=== PATIENT | female | born 1995 | race Caucasian/White ===

== ENCOUNTER → 2016-07-08 | Outpatient (CLI) | payer OTHER ==
[~2016-07-08] MED LIST: ACET50TA PO; IBUP-1114 PO; PREN27TA3 PO; PRENTAB9 PO
[2016-07-08 17:11] LABS: MEAN CORPUSCULAR HEMOGLOBIN 31.3 pg (27.0-33.0); MEAN CORPUSCULAR HGB CONC 33.3 g/dl (32.0-36.5); MEAN CORPUSCULAR VOLUME 93.9 fl (80.0-96.0); RED CELL DISTRIBUTION WIDTH 13.8 % (11.5-14.5); WHITE BLOOD COUNT 7.2 K/mm3 (4.0-10.0)
[2016-07-08 17:54] LABS: ALBUMIN 3.4 GM/DL (3.2-5.2); ALBUMIN/GLOBULIN RATIO 0.97 (1.00-1.93); ALKALINE PHOSPHATASE 91 U/L (45-117); ALT/SGPT 21 U/L (12-78); ANION GAP 5 MEQ/L (8-16); AST/SGOT 16 U/L (15-37); BILIRUBIN,TOTAL 0.2 MG/DL (0.2-1.0); BLOOD UREA NITROGEN 19 MG/DL (7-18); CALCIUM LEVEL 8.9 MG/DL (8.5-10.1); CARBON DIOXIDE LEVEL 31 MEQ/L (21-32); CHLORIDE LEVEL 104 MEQ/L (98-107); CREATININE FOR GFR 0.83 MG/DL (0.55-1.02); GLUCOSE, FASTING 86 MG/DL (70-105); POTASSIUM SERUM 4.1 MEQ/L (3.5-5.1); SODIUM LEVEL 140 MEQ/L (136-145); TOTAL PROTEIN 6.9 GM/DL (6.4-8.2)
--- NOTE | 2016-07-12 07:39 | REP ---
KUB Abdomen and Pelvis: KUB film of abdomen and pelvis is performed with three total views obtained. There is no bowel obstruction with normal bowel gas pattern. No dilated small bowel loops are seen. No abnormal calcifications are seen. The visualized osseous structures are unremarkable. IMPRESSION: Unremarkable KUB abdomen. Unreviewed
== END ==
LOC: M LAB 16:21
PROVIDERS: ATTEND Internal Medicine Gastroenterology
DX: K50.00 Crohn's disease of small intestine without complications (principal); R19.7 Diarrhea, unspecified

== ENCOUNTER → 2016-07-15 | Outpatient (REF) | payer OTHER | LOC: M LAB REF 14:40 | PROVIDERS: ATTEND Internal Medicine Gastroenterology | DX: K50.00 Crohn's disease of small intestine without complications (principal); R19.7 Diarrhea, unspecified ==

== ENCOUNTER → 2016-09-27 | Outpatient (CLI) | payer OTHER ==
[2016-09-27 18:01] LABS: BASO % 0.6 % (0.0-1.0); EOS # 0.1 K/mm3 (0.0-0.50); EOS % 2.2 % (0.0-3.0); LARGE UNSTAINED CELL # 0.1 K/mm3 (0.0-0.4); LYMPH # 1.8 K/mm3 (1.5-6.5); LYMPH % 32.4 % (24.0-44.0); MEAN CORPUSCULAR VOLUME 93.9 fl (80.0-96.0); MONO # 0.4 K/mm3 (0.0-0.8); MONO % 6.7 % (0.0-5.0); NEUTROPHILS # 3.1 K/mm3 (1.8-7.7); NEUTROPHILS % 56.2 % (36.0-66.0); PLATELET COUNT, AUTOMATED 227 k/mm3 (150-450); RED CELL DISTRIBUTION WIDTH 12.8 % (11.5-14.5); WHITE BLOOD COUNT 5.4 K/mm3 (4.0-10.0)
[2016-09-27 18:36] LABS: CONTROL LINE HCG INT CTR LINE PRESENT
[2016-09-27 18:52] LABS: T UPTAKE 32 % (30-39); THYROXINE (T4) 11.6 UG/DL (6.0-11.6)
== END ==
LOC: M SMT 13:32
PROVIDERS: ATTEND Advanced Practice Midwife
DX: N92.6 Irregular menstruation, unspecified (principal); R10.30 Lower abdominal pain, unspecified

== ENCOUNTER → 2016-09-30 | Outpatient (CLI) | payer OTHER ==
--- NOTE | 2016-09-30 17:54 | REP ---
REASON: Pelvic pain. COMPARISON: None. Transvesical and transvaginal imaging was obtained. The uterus measures 6.4 x 4.3 x 5 cm. The parenchymal echo pattern is within normal limits. The endometrial echo complex is smooth and unremarkable measuring 4 mm in thickness. Right ovary measures 3.2 x 2.2 x 2.5 cm and is within normal limits with an RI of 0.73. Left ovary measures 3.4 x 2.2 x 1.7 cm and is within normal limits with an RI of 0.47. There is no free fluid in the cul-de-sac. IMPRESSION: Normal exam. Signed by Justin Rosenberg DO 10/05/2016 04:25 P
== END ==
LOC: M RAD 16:26
PROVIDERS: ATTEND Advanced Practice Midwife
DX: R10.30 Lower abdominal pain, unspecified (principal)

== ENCOUNTER → 2017-01-12 | Outpatient (CLI) | payer MEDICAID ==
[2017-01-12 12:58] LABS: BASO % 0.5 % (0.0-1.0); EOS # 0.1 10^3/uL (0.0-0.50); EOS % 1.8 % (0.0-3.0); IMMATURE GRANULOCYTE % 0.2 % (0-0); LYMPH # 1.2 10^3/uL (1.5-6.5); LYMPH % 18.4 % (24.0-44.0); MEAN CORPUSCULAR HEMOGLOBIN 30.9 pg (27.0-33.0); MEAN CORPUSCULAR HGB CONC 33.3 g/dl (32.0-36.5); MONO # 0.5 10^3/uL (0.0-0.8); MONO % 8.1 % (0.0-5.0); NEUTROPHILS # 4.7 10^3/uL (1.8-7.7); PLATELET COUNT, AUTOMATED 185 10^3/uL (150-450); RED CELL DISTRIBUTION WIDTH 12.6 % (11.5-14.5); WHITE BLOOD COUNT 6.6 10^3/uL (4.0-10.0)
[2017-01-13 11:02] LABS: HBsAg Prenatal NEGATIVE (NEGATIVE)
== END ==
LOC: M SMT 08:32
PROVIDERS: ATTEND Advanced Practice Midwife
DX: Z3A.08 8 weeks gestation of pregnancy (principal)

== ENCOUNTER 2017-02-13 17:13 | Emergency (ER) | payer MEDICAID, OTHER ==
[~2017-02-13] VITALS: Ht 165.1 cm; Wt 68.2 kg
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
[2017-02-13 19:42] VITALS: BP 122/69
== END 2017-02-13 19:32 | disposition home or self-care (01) ==
LOC: M ED 19:29
DX: Z71.1 Person with feared health complaint in whom no diagnosis is made (principal); Z3A.12 12 weeks gestation of pregnancy

== ENCOUNTER → 2017-03-08 | Outpatient (REF) | payer OTHER | LOC: M LAB REF 03-09 13:55 | DX: Z34.81 Encounter for supervision of other normal pregnancy, first trimester (principal) ==

== ENCOUNTER → 2017-03-28 | Outpatient (CLI) | payer OTHER | LOC: M RAD 07:53 | DX: Z36.89 Encounter for other specified antenatal screening (principal); Z3A.18 18 weeks gestation of pregnancy | CPT/HCPCS: 76811 ==

== ENCOUNTER → 2017-04-03 | Outpatient (REF) | payer OTHER | LOC: M LAB REF 15:00 | DX: R35.0 Frequency of micturition (principal) | CPT/HCPCS: 87086 ==

== ENCOUNTER → 2017-04-05 | Outpatient (REF) | payer OTHER | LOC: M LAB REF 12:57 | DX: Z34.82 Encounter for supervision of other normal pregnancy, second trimester (principal) ==

== ENCOUNTER → 2017-07-26 | Outpatient (REF) | payer OTHER | LOC: M LAB REF 10:47 | DX: Z34.83 Encounter for supervision of other normal pregnancy, third trimester (principal); Z3A.00 Weeks of gestation of pregnancy not specified ==

== ENCOUNTER 2017-08-12 19:20 | Outpatient (CLI) | payer OTHER ==
[2017-08-12] MEDS: TERCONAZOLE-7 VAGINAL CREAM PV (21:00)
== END 2017-08-12 23:05 | disposition home or self-care (01) ==
LOC: M LDO 19:20
DX: O26.893 Other specified pregnancy related conditions, third trimester (principal); N89.8 Other specified noninflammatory disorders of vagina; O47.1 False labor at or after 37 completed weeks of gestation; Z3A.38 38 weeks gestation of pregnancy
CPT/HCPCS: 59025

== ENCOUNTER 2017-08-23 07:55 | Inpatient (IN) | payer OTHER ==
[2017-08-23] MEDS: PENICILLIN G POTASSIUM IV 5 MU in D5W MINI-BAG PLUS 100 ML IV (09:08)
[2017-08-23] MEDS: LR 1,000 ML IV (09:09)
[2017-08-23 09:26] LABS: HEMATOCRIT 34.7 % (36.0-47.0); HEMOGLOBIN 11.2 g/dl (12.0-15.5); MEAN CORPUSCULAR HEMOGLOBIN 26.9 pg (27.0-33.0); MEAN CORPUSCULAR HGB CONC 32.3 g/dl (32.0-36.5); MEAN CORPUSCULAR VOLUME 83.4 fl (80.0-96.0); PLATELET COUNT, AUTOMATED 168 10^3/uL (150-450); RED BLOOD COUNT 4.16 10^6/uL (4.00-5.40); RED CELL DISTRIBUTION WIDTH 15.2 % (11.5-14.5); WHITE BLOOD COUNT 9.2 10^3/uL (4.0-10.0)
[2017-08-23] MEDS: PENICILLIN G POTASSIUM IV 2.5 MU in APPROPRIATE DILUENT 1 EA IV (13:16)
[2017-08-23] MEDS ORDERED: OXYTOCIN 30 UNITS IN 0.9% NaCl 500ML IV BAG (J2590) As Ordered (14:01)
[2017-08-23] MEDS ORDERED: METHYLERGONOVINE MALEATE 0.2 MG/ML VIAL (J2210) As Ordered (14:07)
[2017-08-23] MEDS ORDERED: RHOGAM 300 MCG (1500 IU) INJ (J2790) IM (14:30)
[2017-08-23] MEDS ORDERED: DIBUCAINE 1% OINTMENT 30GM TOP (14:30)
[2017-08-23] MEDS ORDERED: METHYLERGONOVINE MALEATE 0.2 MG TAB PO (14:30)
[2017-08-23] MEDS ORDERED: IBUPROFEN 800 MG TAB PO (14:30)
[2017-08-23] MEDS ORDERED: ACETAMINOPHEN 500 MG TAB PO (14:30)
[2017-08-23] MEDS ORDERED: MEASLES,MUMPS,RUBELLA VACCINE INJ (MMR-II) (90707) SC (14:30)
[2017-08-23] MEDS ORDERED: DOCUSATE SODIUM 100 MG CAP PO (14:30)
[2017-08-23] MEDS: PRENATAL VITAMINS CHEWABLE TABLET PO (15:30)
[2017-08-23] MEDS: LIDOCAINE 1% MDV 20ML VIAL INFIL (19:00)
[2017-08-23] MEDS: OXYTOCIN INJ 10 UNITS/ML VIAL (J2590) IM (19:00)
[2017-08-23] MEDS: METHYLERGONOVINE MALEATE 0.2 MG/ML VIAL (J2210) IM (19:00)
[2017-08-23] MEDS: OXYTOCIN DRIP 30 UNITS in APPROPRIATE DILUENT 1 EA IV (19:00)
[2017-08-24] MEDS: PRENATAL VITAMINS CHEWABLE TABLET PO (08:20)
[2017-08-25] MEDS: PRENATAL VITAMINS CHEWABLE TABLET PO (09:38)
== END 2017-08-25 12:30 | disposition home or self-care (01) | DRG 560 ==
LOC: M LDO 07:55 → M LDI 08:19 → M OBS 15:23
PROVIDERS: Advanced Practice Midwife
PROC: 10E0XZZ Delivery of Products of Conception, External Approach (ICD-10-PCS; principal; 2017-08-23)
PROC: 10907ZC Drainage of Amniotic Fluid, Therapeutic from Products of Conception, Via Natural or Artificial Opening (ICD-10-PCS; 2017-08-23)
PROC: 0HQ9XZZ Repair Perineum Skin, External Approach (ICD-10-PCS; 2017-08-23)
DX: O99.62 Diseases of the digestive system complicating childbirth (principal); K90.0 Celiac disease; Z37.0 Single live birth; Z3A.39 39 weeks gestation of pregnancy; O99.824 Streptococcus B carrier state complicating childbirth; O70.0 First degree perineal laceration during delivery

== ENCOUNTER → 2017-10-18 | Outpatient (CLI) | payer OTHER ==
[2017-10-18 14:12] LABS: TOTAL 25(OH) VITAMIN D 16.3 NG/ML (30.0-100.0)
[2017-10-18 14:28] LABS: FREE T4 0.88 NG/DL (0.76-1.46); THYROID STIMULATING HORMONE 0.968 uIU/ML (0.358-3.740)
== END ==
LOC: M SMT 11:22
DX: O90.6 Postpartum mood disturbance (principal)
CPT/HCPCS: 84443

== ENCOUNTER 2017-12-09 15:31 | Emergency (ER) | payer OTHER ==
[2017-12-09] MEDS: ADACEL/BOOSTRIX VACCINE (DIPHTH/PERTUSS/ACELL/TETANUS)0.5ML SYR (90715) IM (15:53)
== END 2017-12-09 17:32 | disposition home or self-care (01) ==
LOC: M ED 15:31
DX: S59.902A Unspecified injury of left elbow, initial encounter (principal); S01.511A Laceration without foreign body of lip, initial encounter; W18.09XA Striking against other object with subsequent fall, initial encounter; Y92.014 Private driveway to single-family (private) house as the place of occurrence of the external cause
CPT/HCPCS: 90715

== ENCOUNTER → 2018-01-11 | Outpatient (REF) | payer OTHER | LOC: M LAB REF 16:58 | DX: Z12.4 Encounter for screening for malignant neoplasm of cervix (principal) ==

== ENCOUNTER → 2018-06-27 | Outpatient (CLI) | payer OTHER ==
[~2018-06-27] MED LIST changes: -ACET50TA PO; +MAPA500T2 PO; +ZOLO25TA PO
[2018-06-27 18:54] LABS: HEMATOCRIT 40.9 % (36.0-47.0); HEMOGLOBIN 13.3 g/dl (12.0-15.5); MEAN CORPUSCULAR HGB CONC 32.5 g/dl (32.0-36.5); MEAN CORPUSCULAR VOLUME 95.3 fl (80.0-96.0); PLATELET COUNT, AUTOMATED 198 10^3/uL (150-450); RED BLOOD COUNT 4.29 10^6/uL (4.00-5.40); WHITE BLOOD COUNT 6.3 10^3/uL (4.0-10.0)
[2018-06-27 19:29] LABS: ALBUMIN 3.9 GM/DL (3.2-5.2); ALT/SGPT 18 U/L (12-78); BILIRUBIN,TOTAL 0.3 MG/DL (0.2-1.0); BLOOD UREA NITROGEN 13 MG/DL (7-18); CARBON DIOXIDE LEVEL 29 MEQ/L (21-32); CHLORIDE LEVEL 108 MEQ/L (98-107); CREATININE FOR GFR 0.66 MG/DL (0.55-1.30); GLOMERULAR FILTRATION RATE > 60.0 (>60); GLUCOSE, FASTING 88 MG/DL (70-100); POTASSIUM SERUM 4.4 MEQ/L (3.5-5.1); SODIUM LEVEL 142 MEQ/L (136-145); TOTAL PROTEIN 7.1 GM/DL (6.4-8.2)
== END ==
LOC: M LAB 16:59
PROVIDERS: ATTEND Nurse Practitioner Adult Health
DX: K50.00 Crohn's disease of small intestine without complications (principal)

== ENCOUNTER → 2019-01-14 | Outpatient (CLI) | payer OTHER ==
[2019-01-14 15:03] LABS: HEMATOCRIT 40.3 % (36.0-47.0); HEMOGLOBIN 13.3 g/dl (12.0-15.5); MEAN CORPUSCULAR HEMOGLOBIN 31.7 pg (27.0-33.0); MEAN CORPUSCULAR VOLUME 96.2 fl (80.0-96.0); PLATELET COUNT, AUTOMATED 202 10^3/uL (150-450); RED BLOOD COUNT 4.19 10^6/uL (4.00-5.40); WHITE BLOOD COUNT 9.9 10^3/uL (4.0-10.0)
[2019-01-14 15:44] LABS: ALBUMIN 3.7 GM/DL (3.2-5.2); ALT/SGPT 25 U/L (12-78); BILIRUBIN,TOTAL 0.4 MG/DL (0.2-1.0); BLOOD UREA NITROGEN 11 MG/DL (7-18); CALCIUM LEVEL 8.9 MG/DL (8.5-10.1); CARBON DIOXIDE LEVEL 31 MEQ/L (21-32); CHLORIDE LEVEL 104 MEQ/L (98-107); GLOMERULAR FILTRATION RATE > 60.0 (>60); GLUCOSE, FASTING 94 MG/DL (70-100); POTASSIUM SERUM 4.2 MEQ/L (3.5-5.1); SODIUM LEVEL 141 MEQ/L (136-145); TOTAL 25(OH) VITAMIN D 18.6 NG/ML (30.0-100.0); TOTAL PROTEIN 6.7 GM/DL (6.4-8.2)
== END ==
LOC: M LAB 14:24
PROVIDERS: ATTEND Nurse Practitioner Adult Health
DX: E55.9 Vitamin D deficiency, unspecified (principal)

== ENCOUNTER → 2019-01-15 | Outpatient (REF) | payer OTHER | LOC: M LAB REF 16:22 | PROVIDERS: ATTEND Internal Medicine Gastroenterology | DX: K50.00 Crohn's disease of small intestine without complications (principal) ==

== ENCOUNTER → 2019-03-08 | Outpatient (REF) | payer OTHER | LOC: M SFHCWAGY 17:38 | PROVIDERS: ATTEND Advanced Practice Midwife | DX: Z12.4 Encounter for screening for malignant neoplasm of cervix (principal) ==

== ENCOUNTER → 2019-05-01 | Outpatient (REF) | payer OTHER ==
[2019-05-01 17:21] LABS: HCG, SERUM QUALITATIVE NEGATIVE (NEGATIVE)
== END ==
LOC: M SFHCPLAZ 12:23
PROVIDERS: ATTEND Nurse Practitioner Adult Health
DX: R11.0 Nausea (principal)

== ENCOUNTER → 2019-07-05 | Outpatient (REF) | payer OTHER | LOC: M LAB REF 16:06 | DX: K50.00 Crohn's disease of small intestine without complications (principal) ==

== ENCOUNTER → 2019-07-15 | Outpatient (CLI) | payer OTHER ==
--- NOTE | 2019-07-16 03:20 | REP ---
Clinical: Completion with IUD. Technique: Transabdominal pelvic ultrasound followed by transvaginal examination for better evaluation of the endometrium and adnexa with color Doppler evaluation of the ovaries. Findings: Bladder is unremarkable and measures 8.4 x 6.6 x 3.9 cm. Normal anteverted uterus measures 6.9 x 4.8 x 4.9 cm . The endometrial complex measures 5.0 mm thickness. No discrete uterine or endometrial abnormalities are appreciated. IUD identified in central satisfactory position. Right ovary is not visualized. Left ovary appears normal and measures 2.4 x 1.7 x 1.5 cm (RI 0.54). Impression: 1. Normal anteverted uterus with IUD in satisfactory position. 2. Normal right ovary. Left ovary not visualized.
== END ==
LOC: M WHC 14:54
PROVIDERS: ATTEND Advanced Practice Midwife
DX: N85.4 Malposition of uterus (principal); T83.9XXA Unspecified complication of genitourinary prosthetic device, implant and graft, initial encounter

== ENCOUNTER → 2019-07-30 | Outpatient (REF) | payer OTHER ==
[2019-07-30 12:23] LABS: HCG, SERUM QUALITATIVE NEGATIVE (NEGATIVE)
== END ==
LOC: M PLALAB 09:59
PROVIDERS: ATTEND Nurse Practitioner Adult Health
DX: Z32.01 Encounter for pregnancy test, result positive (principal)

== ENCOUNTER 2019-08-06 18:45 | Emergency (ER) | payer OTHER ==
[~2019-08-06] VITALS: Ht 165.1 cm; Wt 70.9 kg
[2019-08-06] MEDS ORDERED: MIRE1IUD IU (18:49)
[2019-08-06 19:50] LABS: BASO % 0.6 % (0.0-1.0); EOS # 0.1 10^3/uL (0.0-0.5); EOS % 1.8 % (0.0-3.0); HEMATOCRIT 42.2 % (36.0-47.0); HEMOGLOBIN 14.2 g/dl (12.0-15.5); LYMPH # 1.7 10^3/uL (1.5-5.0); MEAN CORPUSCULAR HEMOGLOBIN 31.6 pg (27.0-33.0); MEAN CORPUSCULAR HGB CONC 33.6 g/dl (32.0-36.5); MEAN CORPUSCULAR VOLUME 93.8 fl (80.0-96.0); MONO # 0.6 10^3/uL (0.0-0.8); MONO % 10.3 % (0.0-5.0); NEUTROPHILS # 3.1 10^3/uL (1.5-8.5); NEUTROPHILS % 55.9 % (36.0-66.0); PLATELET COUNT, AUTOMATED 178 10^3/uL (150-450); WHITE BLOOD COUNT 5.5 10^3/uL (4.0-10.0)
[2019-08-06 20:16] LABS: HCG, SERUM QUALITATIVE NEGATIVE (NEGATIVE)
[2019-08-06 20:28] LABS: BLOOD UREA NITROGEN 7 MG/DL (7-18); CARBON DIOXIDE LEVEL 28 MEQ/L (21-32); CHLORIDE LEVEL 107 MEQ/L (98-107); CREATININE FOR GFR 0.71 MG/DL (0.55-1.30); GLOMERULAR FILTRATION RATE > 60.0 (>60); GLUCOSE, FASTING 87 MG/DL (70-100); POTASSIUM SERUM 3.9 MEQ/L (3.5-5.1); SODIUM LEVEL 142 MEQ/L (136-145)
[2019-08-06 20:29] LABS: ALBUMIN 3.7 GM/DL (3.2-5.2); ALT/SGPT 22 U/L (12-78); BILIRUBIN,DIRECT < 0.1 MG/DL (0.0-0.2); BILIRUBIN,TOTAL 0.3 MG/DL (0.2-1.0); CALCIUM LEVEL 8.5 MG/DL (8.5-10.1); LIPASE 91 U/L (73-393); TOTAL PROTEIN 6.7 GM/DL (6.4-8.2)
[2019-08-06] MEDS ORDERED: ISOVUE-370 76% 100ML VIAL As Ordered ONE (21:10)
--- NOTE | 2019-08-06 21:43 | REPVR ---
PROCEDURE INFORMATION: Exam: CT Abdomen And Pelvis With Contrast Exam date and time: 08/06/2019 9:17 PM Age: 24 years old Clinical indication: Abdominal pain; Localized; Lower; Additional info: Lower abd pain HX of crohn's TECHNIQUE: Imaging protocol: Computed tomography of the abdomen and pelvis with intravenous contrast. Radiation optimization: All CT scans at this facility use at least one of these dose optimization techniques: automated exposure control; mA and/or kV adjustment per patient size (includes targeted exams where dose is matched to clinical indication); or iterative reconstruction. Contrast material: ISOVUE 370; Contrast volume: 100 ml; Contrast route: IV; COMPARISON: PELVIS NON-OB COMPLETE US 07/15/2019 3:10 PM FINDINGS: Liver: Normal. No mass. Gallbladder and bile ducts: Normal. No calcified stones. No ductal dilation. Pancreas: Normal. No ductal dilation. Spleen: Normal. No splenomegaly. Adrenals: Normal. No mass. Kidneys and ureters: There are a few tiny bilateral renal hypodensities which are too small to characterize. Stomach and bowel: Unremarkable. No obstruction. No mucosal thickening. Appendix: No evidence of appendicitis. Intraperitoneal space: Trace free fluid within the pelvis. Vasculature: Unremarkable. No abdominal aortic aneurysm. Lymph nodes: Unremarkable. No enlarged lymph nodes. Bladder: Unremarkable as visualized. Reproductive: IUD within the uterus. 1 cm corpus luteal cyst involving the right ovary. Bones/joints: Unremarkable. No acute fracture. Soft tissues: Unremarkable. IMPRESSION: 1. No acute abnormality. 2. 1 cm corpus luteal cyst involving the right ovary. COMMENTS: Consistent with the [employer]'s Incidental Findings Committee white paper (J Am Rochelle Radiol 2018): Any incidental renal lesion less than 1.0 cm or classified as too small to characterize, or any incidental cystic renal lesion characterized as simple-appearing, is likely benign. No follow-up imaging is recommended for these lesions per consensus recommendations based on imaging criteria. Electronically signed by: Macho Islas On 08/06/2019 21:42:48 PM
[2019-08-06 22:05] VITALS: BP 124/68
== END 2019-08-06 22:05 | disposition home or self-care (01) ==
LOC: M ED 18:45
DX: R10.9 Unspecified abdominal pain (principal); N83.11 Corpus luteum cyst of right ovary; K50.90 Crohn's disease, unspecified, without complications; Z97.5 Presence of (intrauterine) contraceptive device
CPT/HCPCS: 74177; 80048; 80076; 81001; 83690; 84703; 85025; 99284; Q9967

== ENCOUNTER 2019-11-01 13:44 | Emergency (ER) | payer OTHER ==
[~2019-11-01] VITALS: Ht 165.1 cm; Wt 70.5 kg
[~2019-11-01 13:44] MED LIST changes: +MIRE1IUD IU
[2019-11-01] MEDS ORDERED: BUDE3CAP (13:51)
[2019-11-01] MEDS ORDERED: NS 1,000 ML IV ONE (14:15)
[2019-11-01] MEDS ORDERED: ONDANSETRON 4MG/2ML VIAL IV ONE (14:15)
[2019-11-01 14:48] LABS: BASO % 0.6 % (0.0-1.0); EOS # 0.1 10^3/uL (0.0-0.5); EOS % 0.9 % (0.0-3.0); HEMATOCRIT 39.4 % (36.0-47.0); HEMOGLOBIN 13.4 g/dl (12.0-15.5); LYMPH # 1.5 10^3/uL (1.5-5.0); LYMPH % 27.9 % (24.0-44.0); MEAN CORPUSCULAR HEMOGLOBIN 32.4 pg (27.0-33.0); MEAN CORPUSCULAR VOLUME 95.2 fl (80.0-96.0); MONO # 0.4 10^3/uL (0.0-0.8); NEUTROPHILS # 3.4 10^3/uL (1.5-8.5); PLATELET COUNT, AUTOMATED 174 10^3/uL (150-450); RED BLOOD COUNT 4.14 10^6/uL (4.00-5.40); WHITE BLOOD COUNT 5.4 10^3/uL (4.0-10.0)
[2019-11-01 15:06] LABS: ALBUMIN 3.9 GM/DL (3.2-5.2); ALT/SGPT 17 U/L (12-78); BILIRUBIN,DIRECT 0.2 MG/DL (0.0-0.2); BILIRUBIN,TOTAL 0.5 MG/DL (0.2-1.0); BLOOD UREA NITROGEN 7 MG/DL (7-18); CALCIUM LEVEL 9.2 MG/DL (8.5-10.1); CARBON DIOXIDE LEVEL 30 MEQ/L (21-32); CHLORIDE LEVEL 107 MEQ/L (98-107); CREATININE FOR GFR 0.74 MG/DL (0.55-1.30); GLOMERULAR FILTRATION RATE > 60.0 (>60); GLUCOSE, FASTING 92 MG/DL (70-100); LIPASE 58 U/L (73-393); POTASSIUM SERUM 3.2 MEQ/L (3.5-5.1); SODIUM LEVEL 142 MEQ/L (136-145); TOTAL PROTEIN 6.8 GM/DL (6.4-8.2)
[2019-11-01 15:10] LABS: HCG, SERUM QUALITATIVE NEGATIVE (NEGATIVE)
--- NOTE | 2019-11-01 16:04 | REPVR ---
PROCEDURE INFORMATION: Exam: XR Complete Acute Abdomen Series Exam date and time: 11/01/2019 3:18 PM Age: 24 years old Clinical indication: Abdominal pain; Generalized; Additional info: Crohns, abd pain TECHNIQUE: Imaging protocol: XR complete acute abdomen series, including 2 or more views of the abdomen and a single view chest. COMPARISON: CT ABD/PEL W/IV CONTRAST ONLY 08/06/2019 9:14 PM FINDINGS: Lungs: Normal. No consolidation. Pleural space: Normal. No pneumothorax. Heart/Mediastinum: Normal. No cardiomegaly. Gastrointestinal tract: Normal. No bowel dilation. Intraperitoneal space: Normal. No free air. Organs: IUD projects over the mid pelvis. Bones/joints: Normal. No acute fracture. Soft tissues: Normal. IMPRESSION: No acute findings. Electronically signed by: Yasir Macias On 11/01/2019 16:04:34 PM
[2019-11-01] MEDS ORDERED: ONDA4TAB6 PO (16:44)
[2019-11-01] MEDS ORDERED: methylPREDNISolone 125MG 2ML VIAL IV ONE (16:45)
[2019-11-01 17:01] VITALS: BP 119/76
== END 2019-11-01 17:04 | disposition home or self-care (01) ==
LOC: M ED 13:44
DX: K50.90 Crohn's disease, unspecified, without complications (principal)
CPT/HCPCS: 74021; 80048; 80076; 83690; 84703; 85025; 96361; 96374; 96375; 99284; J2405; J2930

== ENCOUNTER → 2020-01-03 | Outpatient (REF) | payer OTHER ==
[~2020-01-03] MED LIST changes: +BUDE3CAP; +ONDA4TAB6 PO
== END ==
LOC: M LAB REF 09:59
PROVIDERS: ATTEND Physician Assistant
DX: J02.9 Acute pharyngitis, unspecified (principal)

== ENCOUNTER → 2020-01-20 | Outpatient (CLI) | payer OTHER | LOC: M LAB 17:31 | PROVIDERS: ATTEND Family Medicine | DX: Z34.01 Encounter for supervision of normal first pregnancy, first trimester (principal); Z3A.01 Less than 8 weeks gestation of pregnancy ==

== ENCOUNTER → 2020-03-03 | Outpatient (CLI) | payer OTHER ==
[2020-03-03 13:14] LABS: HEMATOCRIT 41.4 % (36.0-47.0); HEMOGLOBIN 13.8 g/dl (12.0-15.5); MEAN CORPUSCULAR HEMOGLOBIN 31.7 pg (27.0-33.0); MEAN CORPUSCULAR HGB CONC 33.3 g/dl (32.0-36.5); MEAN CORPUSCULAR VOLUME 95.2 fl (80.0-96.0); PLATELET COUNT, AUTOMATED 165 10^3/uL (150-450); RED BLOOD COUNT 4.35 10^6/uL (4.00-5.40); WHITE BLOOD COUNT 6.7 10^3/uL (4.0-10.0)
[2020-03-03 13:44] LABS: ALT/SGPT 28 U/L (12-78); BILIRUBIN,TOTAL 0.5 MG/DL (0.2-1.0); BLOOD UREA NITROGEN 8 MG/DL (7-18); CALCIUM LEVEL 9.1 MG/DL (8.5-10.1); CARBON DIOXIDE LEVEL 29 MEQ/L (21-32); CHLORIDE LEVEL 106 MEQ/L (98-107); CREATININE FOR GFR 0.64 MG/DL (0.55-1.30); ERYTHROCYTE SEDIMENTATION RATE 8 mm/hr (0-20); GLOMERULAR FILTRATION RATE > 60.0 (>60); GLUCOSE, FASTING 107 MG/DL (70-100); IMMUNOGLOBULIN A 50.4 MG/DL (70-400); POTASSIUM SERUM 3.7 MEQ/L (3.5-5.1); SODIUM LEVEL 141 MEQ/L (136-145); TOTAL PROTEIN 6.9 GM/DL (6.4-8.2)
[2020-03-03 13:46] LABS: VITAMIN B12 LEVEL 348 PG/ML (247-911)
== END ==
LOC: M LAB 12:17
DX: K50.00 Crohn's disease of small intestine without complications (principal)

== ENCOUNTER 2020-03-23 18:46 | Emergency (ER) | payer OTHER ==
[~2020-03-23] VITALS: Ht 165.1 cm; Wt 71.9 kg
--- NOTE | 2020-03-23 20:15 | REP ---
INDICATION: fall injury. COMPARISON: None. TECHNIQUE: Four views of the left wrist. FINDINGS: Four views of the left wrist demonstrate normal bones, joints, and soft tissues. No fracture or subluxation is seen. IMPRESSION: Negative left wrist radiographs. <Electronically signed by Arturo Devine > 03/23/202010
--- NOTE | 2020-03-23 20:16 | REP ---
INDICATION: fall injury. COMPARISON: None. TECHNIQUE: AP and lateral views of the left forearm. FINDINGS: Two views of the left forearm demonstrate normal bones, joints, and soft tissues. No fracture or subluxation is seen. No opaque foreign body noted. IMPRESSION: Negative left forearm series. <Electronically signed by Arturo Devine > 03/23/202011
--- NOTE | 2020-03-23 20:18 | REP ---
INDICATION: fall injury. COMPARISON: Comparison left elbow radiographs are from December 09, 2017.. TECHNIQUE: Four views of the left elbow. FINDINGS: Four views of the left elbow demonstrate normal bones, joints and soft tissues. No fracture or subluxation is seen. There is no evidence of joint effusion.. . No opaque foreign body noted. IMPRESSION: Negative left elbow series. <Electronically signed by Arturo Devine > 03/23/202013
[2020-03-23 20:41] VITALS: BP 116/71
== END 2020-03-23 20:47 | disposition home or self-care (01) ==
LOC: M ED 18:46
DX: S63.92XA Sprain of unspecified part of left wrist and hand, initial encounter (principal); S53.402A Unspecified sprain of left elbow, initial encounter; W01.0XXA Fall on same level from slipping, tripping and stumbling without subsequent striking against object, initial encounter; Y92.9 Unspecified place or not applicable; Y93.01 Activity, walking, marching and hiking; Y99.0 Civilian activity done for income or pay; F17.200 Nicotine dependence, unspecified, uncomplicated; K50.00 Crohn's disease of small intestine without complications; Z97.5 Presence of (intrauterine) contraceptive device

== ENCOUNTER 2020-04-01 21:50 | Emergency (ER) | payer OTHER ==
[~2020-04-01] VITALS: Ht 165.1 cm; Wt 74.3 kg
--- OUTSIDE RECORDS SUMMARY | 2020-04-01 21:59 | CCD | Continuity of Care Document ---
Author Author Cesilia GARCIA PACecyC Organization Unknown Address [address], [address] [place] [address] Phone [phone] Care Team Providers Care Laborer [employer] Name Role Phone Gerri Frye DO AUTM [phone] Problems Active Problems Provider Date Right upper quadrant pain Killian Hernandez DO Onset: 015 Social History Type Date Description Comments Sex Unknown ETOH Use 07/05/2018 Denies alcohol use Tobacco Use Reviewed: 07/05/18 Patient has never smoked Smoking Status Reviewed: 07/05/18 Patient has never smoked Tattoo/Piercing 07/05/2018 Negative For Tattoo Tattoo/Piercing 07/05/2018 Pierced ears Allergies, Adverse Reactions, Alerts Description No Known Drug Allergies Medications Active Medications SIG Qnty Indications Ordering Provide r Date Sertraline HCL 50mg Tablets 1 by mouth every day Unknown History Medications Budesonide 3mg Caps DR Part 3 by mouth every day 90caps Killian Hernandez DO 10/24/2019 - Immunizations Description No Information Available Vital Signs Date Vital Result Comment 07/05/2018 3:30pm BP Systolic 106 mmHg BP Diastolic 74 mmHg Heart Rate 86 /min Height 65.5 inches 5'5.50" Weight 123.00 lb BMI (Body Mass Index) 20.2 kg/m2 Body Temperature 97.0 F 2018 10:02am BP Systolic 117 mmHg BP Diastolic 70 mmHg Heart Rate 87 /min Height 65.5 inches 5'5.50" Weight 124.00 lb BMI (Body Mass Index) 20.3 kg/m2 Body Temperature 96.8 F Results Description No Information Available Procedures Date Code Description Status 07/05/2018 71683888 Colonoscopy Completed Medical Devices Description No Information Available Encounters Type Date Location Provider Dx Diagnosis Office Visit 02/19/2020 1:20p [facility] Office GILBERT Dubose K50.00 Crohn's disease of small intestine without complications Assessments Date Code Description Provider 02/19/2020 K50.00 Crohn's disease of small intesti ne without complications Ashely Garcia PA-C Plan of Treatment 02/19/2020 - Ashely Garcia PA-C* K50.00 Crohn's disease of small intestine without complications* New Labs:* CRP/Esr, Ordered: 02/19/20 * Stool Calprotectin, Ordered: 02/19/20 * Vitamin B12 Ser Mass/Vol, Ordered: 02/19/20 * Iron Panel, Ordered: 02/19/20 * CMP & CBC, Ordered: 02/19/20 Functional Status Description No Information Available Mental Status Description No Information Available Referrals Description No Information Available
--- OUTSIDE RECORDS SUMMARY | 2020-04-01 21:59 | CCD | Continuity of Care Document ---
Author Author Cesilia GARCIA PACecyC Organization Unknown Address [address], [address] [place] [address] Phone [phone] Care Team Providers Care Preschool Program Director Name Role Phone Gerri Frye DO AUTM [phone] Problems Active Problems Provider Date Right upper [...] Available Procedures Date Code Description Status 07/05/2018 [id number] Colonoscopy Completed Medical Devices Description No Information Available Encounters Type Date Location Provider Dx Diagnosis Office Visit 02/19/2020 1:20p [facility] Office GILBERT Dubose K50.00 Crohn's disease of small intestine without complications Assessments Date Code Description Provider 02/19/2020 K50.00 Crohn's disease of small intesti ne without complications Ashely Garcia PA-C Plan of Treatment 02/19/2020 - Ashely Garcia PA-C* K50.00 Crohn's disease of small intestine without complications * * New Labs:* CRP/Esr, Ordered: 02/19/20 * Stool Calprotectin, Ordered: 02/19/20 * Vitamin B12 Ser Mass/Vol, Ordered: 02/19/20 * Iron Panel, Ordered: 02/19/20 * CMP & CBC, Ordered: 02/19/20 * Celiac DZ Panel-Assocgastro, Ordered: 02/19/20 * Comments:* 24-year-old with a history of Crohn's disease of the duodenum and terminal ileum. She recently had a flare up of her symptoms. We talked about restarting Pentasa capsules 500 mg 3 tabs twice daily however she notes they are large capsules and hard for her to swallow. I told her I would talk to Dr. Hernandez about an alternative medication such as mesalamine. In the meantime I have ordered an MRI enterography of the abdomen and labs including a sed rate, CRP, CBC, stool calprotectin, celiac panel, iron panel and CMP. Depending on the MRI enterography results the patient may need a follow-up colonoscopy in 2020. Functional Status Description No Information Available Mental Status Description No Information Available Referrals Description No Information Available
--- OUTSIDE RECORDS SUMMARY | 2020-04-01 21:59 | CCD | Continuity of Care Document ---
Author Author Cesilia MCKEON Organization Unknown Address [address] [place] [address] [place] [address] Phone [phone] Care Team Providers Care Operations Clerk Name Role Phone [facility] Adult Primary Care AUTM [phone] Isai Co Publi AUTM [phone] Problems Description No Information Available Social History Type Date Description Comments Sex Unknown ETOH Use Occasionally consumes alcohol Tobacco Use Start: Unknown Patient has never smoked Recreational Drug Use Denies Drug Use Tobacco Use Start: Unknown No Smokers In The Home Tobacco Use Start: Unknown The Patient Has Never Vaped Smoking Status Reviewed: 02/25/20 The Patient Has Never Vaped Allergies, Adverse Reactions, Alerts Description No Known Drug Allergies Medications Active Medications SIG Qnty Indications Ordering Provide r Date Mirena (52 MG) 20mcg/24HR IUD Unknown Zoloft 50mg Tablets 1 by mouth every day Unknown Immunizations Description No Information Available Vital Signs Date Vital Result Comment 02/25/2020 1:35pm BP Systolic 112 mmHg BP Diastolic 77 mmHg Heart Rate 90 /min Respiratory Rate 14 /min O2 % BldC Oximetry 99 % Body Temperature 98.7 F Weight 155.00 lb Pain Level 2 01/03/2020 8:16am BP Systolic 137 mmHg BP Diastolic 74 mmHg Heart Rate 95 /min Respiratory Rate 12 /min O2 % BldC Oximetry 99 % Body Temperature 98.2 F Weight 150.00 lb Height 65 inches 5'5" BMI (Body Mass Index) 25.0 kg/m2 Pain Level 2 Results Test Acquired Date Facility Test Result H/L Range Note Group A Stretp Culture 01/03/2020 [facility] [address] [place] [address] [phone] Group A Strep Culture FULL REPORT IN L <SEE NOTE> Nor mal 1, 2 1 No Rx 2 FULL REPORT IN LAB NOTES (eC W and Medent). NEGATIVE FOR STREP PYOGENES (GROUP A) Procedures Description No Information Available Medical Devices Description No Information Available Encounters Type Date Location Provider Dx Diagnosis Office Visit 02/25/2020 2:15p Main Office GILBERT Farias J06.9 Acute upper respiratory infection, unspecified Z20.828 Contact w and exposure to ot h viral communicable diseases Office Visit 01/03/2020 8:00a Main Office GILBERT Moore J02 .9 Acute pharyngitis, unspecified Z20.828 Contact w and exposure to ot h viral communicable diseases Office Visit 11/25/2019 8:20a Main Office GILBERT Farias Z20.8 28 Contact w and exposure to oth viral communicable diseases J06.9 Acute upper respiratory infe ction, unspecified Assessments Date Code Description Provider 02/25/2020 J06.9 Acute upper respiratory infectio n, unspecified GILBERT Farias 02/25/2020 Z20.828 Contact with and (tompkins spected) exposure to other viral communicable diseases GILBERT Farias 01/03/2020 J02.9 Acute pharyngitis, unspecified M GILBERT Perez 01/03/2020 Z20.828 Contact with and (tompkins spected) exposure to other viral communicable diseases GILBERT Moore 11/25/2019 Z20.828 Contact with and (tompkins spected) exposure to other viral communicable diseases GILBERT Farias 11/25/2019 J06.9 Acute upper respiratory infectio n, unspecified GILBERT Farias 10/30/2019 Z11.59 Encounter for screening for othe r viral diseases Celestine Day Plan of Treatment No Information Available Functional Status Description No Information Available Mental Status Description No Information Available Referrals Description No Information Available
--- OUTSIDE RECORDS SUMMARY | 2020-04-01 21:59 | CCD | Continuity of Care Document ---
Author Author Cesilia MCKEON Organization Unknown Address [address] [place] [address] [place] [address] Phone [phone] Care Team Providers Care State Game Protector Name Role Phone [facility] Adult Primary Care AUTM [phone] Isai Co Publi AUTM [phone] Problems Description No Information Available Social History [...] Range Note Group A Stretp Culture 01/03/2020 [facility] [address] [place] [address] [phone] Group A Strep Culture FULL REPORT IN [...]
--- OUTSIDE RECORDS SUMMARY | 2020-04-01 22:00 | CCD ---
Author Author [facility] Organization [facility] Address Unknown Phone Unavailable Care Team Providers Care Boilermaker Helper Name Role Phone Jorge Alberto Costa Unavailable PROBLEMS Type Condition ICD9-CM Code HTX62-HJ Code Onset Dates Condition S tatus SNOMED Code Notes Problem Vitamin D deficiency E55.9 Active 87071755 Problem Amenorrhea N91.2 Active 58467773 Problem Crohn''s disease without com plication, unspecified gastrointestinal tract location K50.90 Active 03101813 Problem Anxiety F41.9 Active 35260171 ALLERGIES No Known Allergies ENCOUNTERS from 1996 to 2020-01-17 Encounter Location Date Provider Diagnosis [address] [address] Dec, 020 Jorge Alberto Costa Less than 8 weeks gestation of Z3A.01 IMMUNIZATIONS Vaccine Route Administration Date Status Pneumococcal Adult 0.5mL (Pneumovax 23) Unknown Dec 19, 2019 Administered Influenza (6mo & up) Fluzone Unknown Dec 19, 2019 Adm inistered SOCIAL HISTORY Tobacco Use: Social History Observation Description Date Details (start date - stop date) Never Smoker Sex Assigned At : Social History Observation Description Sex Assigned At Unknown Education: Question Answer Notes Level of Education: high school grad, 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 Sexual Hx: Question Answer Notes Had sex in the last 12 months (vaginal, oral, or anal)? Yes with Men only Use protection? Yes How often? All of the time Drug and Alcohol Question Answer Notes Total Score: 0 Interpretation: No problems reported Alcohol Screening: Question Answer Notes Did you have a drink containing alcohol in the past year? No Points 0 Interpretation Negative Tobacco Use: Question Answer Notes Are you a: never smoker REASON FOR REFERRAL No Information VITAL SIGNS No information MEDICATIONS Medication SIG (Take, Route, Frequency, Duration) Notes Start Da te End Date Status Vitamin D 2000 UNIT 1 tablet Orally Once a day for 30 day(s) Not-Taking Sertraline HCl 50 MG 1 tablet Orally Once a day for 30 day(s) Nov, Active Mirena (52 MG) 20 MCG/24HR as directed Intrauterine Active PROCEDURES No Information RESULTS No Results REASON FOR VISIT wants HCG test MEDICAL (GENERAL) HISTORY Type Description Date Medical History Crohns disease Medical History anxiety disorder Medical History asthma as a child grew out of it Medical History depression Surgical History No Surgical history information Hospitalization History Crohns Flare up-[facility] 08/2014 Goals Section No Information Health Concerns No Information MEDICAL EQUIPMENT No Information MENTAL STATUS No Information FUNCTIONAL STATUS No Information ASSESSMENTS Encounter Date Diagnosis Assessment Notes Treatment Notes Treatm ent Clinical Notes Dec, Less than 8 weeks gestation of (ICD-10 - Z3A.01) PLAN OF TREATMENT Medication Medication Name Sig Start Date Stop Date Sertraline HCl 50 MG 1 tablet Orally Once a day for 30 day(s) Nov, Treatment Notes Test Name Order Date HCG, SERUM QUANTITATIVE 2020-01-17 Next Appt Details Provider Name:Felicita Fernandez, 11:45:00 AM, [address] [place], [address], Insurance Providers Payer Name Payer Address Payer Phone Insured Name Patient Relati onship to Insured Coverage Start Date Coverage End Date [facility] [employer] [facility] [address] [facility] [phone] LAURIE MANRIQUE
--- OUTSIDE RECORDS SUMMARY | 2020-04-01 22:00 | CCD | Continuity of Care Document ---
Author Author Cesilia BAKER ME Organization Unknown Address [address] [place] [address] [place] [address] Phone [phone] Care Team Providers Care Direct Marketing Coordinator Name Role Phone [facility] Adult Primary Care AUTM [phone] Isai Co Publi AUTM [phone] Problems Description No Information Available Social History Type Date Description Comments Sex Unknown ETOH Use Occasionally consumes alcohol Tobacco Use Start: Unknown Patient has never smoked Recreational Drug Use Denies Drug Use Tobacco Use Start: Unknown No Smokers In The Home Tobacco Use Start: Unknown The Patient Has Never Vaped Smoking Status Reviewed: 01/03/20 The Patient Has Never Vaped Allergies, Adverse Reactions, Alerts Description No Known Drug Allergies Medications Active Medications SIG Qnty Indications Ordering Provide r Date Mirena (52 MG) 20mcg/24HR IUD Unknown Zoloft 50mg Tablets 1 by mouth every day Unknown Immunizations Description No Information Available Vital Signs Date Vital Result Comment 01/03/2020 8:16am BP Systolic 137 mmHg BP Diastolic 74 mmHg Heart Rate 95 /min Respiratory Rate 12 /min O2 % BldC Oximetry 99 % Body Temperature 98.2 F Weight 150.00 lb Height 65 inches 5'5" BMI (Body Mass Index) 25.0 kg/m2 Pain Level 2 11/25/2019 8:32am BP Systolic 106 mmHg BP Diastolic 81 mmHg Heart Rate 98 /min Respiratory Rate 12 /min O2 % BldC Oximetry 98 % Body Temperature 98.1 F Weight 154.00 lb Height 65 inches 5'5" BMI (Body Mass Index) 25.6 kg/m2 Pain Level 2 Results Test Acquired Date Facility Test Result H/L Range Note Group A Stretp Culture 01/03/2020 [facility] [address] [place] [address] [phone] Group A Strep Culture FULL REPORT IN L <SEE NOTE> Nor mal 1 1 FULL REPORT IN LAB NOTES (eC W and [facility]). NEGATIVE FOR STREP PYOGENES (GROUP A) Procedures Description No Information Available Medical Devices Description No Information Available Encounters Type Date Location Provider Dx Diagnosis Office Visit 01/03/2020 8:00a Main Office GILBERT Moore J02 .9 Acute pharyngitis, unspecified Z20.828 Contact w and exposure to ot h viral communicable diseases Office Visit 11/25/2019 8:20a Main Office GILBERT Farias Z20.8 28 Contact w and exposure to oth viral communicable diseases J06.9 Acute upper respiratory infe ction, unspecified Assessments Date Code Description Provider 01/03/2020 J02.9 Acute pharyngitis, unspecified M GILBERT Perez 01/03/2020 Z20.828 Contact with and (tompkins spected) exposure to other viral communicable diseases GILBERT Moore 11/25/2019 Z20.828 Contact with and (tompkins spected) exposure to other viral communicable diseases GILBERT Farias 11/25/2019 J06.9 Acute upper respiratory infectio n, unspecified GILBERT Farias 10/30/2019 Z11.59 Encounter for screening for othe r viral diseases Wyatt Aguirre PFrancieAFrancie Plan of Treatment No Information Available Functional Status Description No Information Available Mental Status Description No Information Available Referrals Description No Information Available
--- OUTSIDE RECORDS SUMMARY | 2020-04-01 22:00 | CCD ---
Author Author [facility] Organization [facility] Address Unknown Phone Unavailable Care Team Providers Care Ordained Minister Name Role Phone Maris Gallegos Unavailable PROBLEMS Type Condition ICD9-CM Code [id number] Code Onset Dates Condition S tatus SNOMED Code Notes Problem Vitamin D deficiency E55.9 Active 30021182 Problem Amenorrhea N91.2 Active 40053484 Problem Crohn''s disease without com plication, unspecified gastrointestinal tract location K50.90 Active 78933393 Problem Anxiety F41.9 Active 03434144 ALLERGIES No Known Allergies ENCOUNTERS from 1996 to 2020-01-18 Encounter Location Date Provider Diagnosis [facility] [address] [place] [id number] Dec, Maris Gallegos IMMUNIZATIONS Vaccine Route Administration Date Status Pneumococcal [...] Level of Education: high school grad, [employer]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 Sexual [...] Information RESULTS No Results REASON FOR VISIT HCG quants MEDICAL (GENERAL) HISTORY Type Description Date Medical History Crohns disease Medical History anxiety disorder Medical History asthma as a child grew out of it Medical History depression Surgical History No Surgical history information Hospitalization History Crohns Flare [facility] 08/2014 Goals Section No Information Health Concerns No Information MEDICAL EQUIPMENT No Information MENTAL STATUS No Information FUNCTIONAL STATUS No Information ASSESSMENTS No Information PLAN OF TREATMENT Medication Medication Name Sig Start Date Stop Date Sertraline HCl 50 MG 1 tablet Orally Once a day for 30 day(s) Nov, Next Appt Details Provider Name:Felicita Fernandez, 11:45:00 AM, [address] [place], [address], Insurance Providers Payer Name Payer Address Payer Phone Insured Name Patient Relati onship to Insured Coverage Start Date Coverage End Date [facility] [place] [address] [facility] [phone] LAURIE MANRIQUE
--- OUTSIDE RECORDS SUMMARY | 2020-04-01 22:00 | CCD | Continuity of Care Document ---
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 Plan of Treatment No Information Available Functional Status Description No Information Available Mental Status Description No Information Available Referrals Description No Information Available
--- OUTSIDE RECORDS SUMMARY | 2020-04-01 22:00 | CCD | Continuity of Care Document ---
Author Author Cesilia ISSA MD Organization Unknown Address [address] [place] [address] Phone [phone] Care Team Providers Care Accounts Specialist Name Role Phone Felicita Fernandez AUTM [phone] Problems Description No Information Available Social History Type Date Description Comments Sex Unknown ETOH Use Currently consumes alcohol daily Tobacco Use Start: Unknown Patient is a current smoker, smo kes some days vapes Smoking Status Reviewed: 01/31/20 Patient is a current smoker, smokes some days vapes Allergies, Adverse Reactions, Alerts Description No Known Drug Allergies Medications Active Medications SIG Qnty Indications Ordering Provide r Date Sertraline HCL 25mg Tablets Unknown Immunizations Description No Information Available Vital Signs Date Vital Result Comment 01/31/2020 8:47am Body Temperature 96.8 F Height 67 inches 5'7" Weight 152.38 lb BMI (Body Mass Index) 23.9 kg/m2 12/11/2017 11:49am Body Temperature 98.5 F Height 65 inches 5'5" Weight 130.38 lb BMI (Body Mass Index) 21.7 kg/m2 Results Description No Information Available Procedures Date Code Description Status 01/31/2020 00548 X-Ray Elbow Complete Completed Medical Devices Description No Information Available Encounters Type Date Location Provider Dx Diagnosis Office Visit 01/31/2020 8:15a Saragosakhurram Issa MD G56.22 Lesion of ulnar nerve, left upper limb Assessments Date Code Description Provider 01/31/2020 G56.22 Lesion of ulnar nerve, left uppe r limb Pete Issa MD Plan of Treatment 01/31/2020 - Pete Issa MD* G56.22 Lesion of ulnar nerve, left upper limb* Follow up:* f/u with [facility] for emg study f/u with [facility] for emg results Functional Status Description No Information Available Mental Status Description No Information Available Referrals Refer to Reason for Referral Status Appt Date Pete Issa MD EMG NO AUTH REQUIRED TO SCHEDULING NT Creat ed [address] [place] [address] [phone] Pete Issa MD REF NO AUTH REQUIRED FOR REF TO DR ARITA TO TRA NS NT Created [address] [place] [address] [phone]
--- OUTSIDE RECORDS SUMMARY | 2020-04-01 22:00 | CCD | Continuity of Care Document ---
Author Author Cesilia BAKER [place] Organization Unknown Address [address] [place] [address] [place] [address] Phone [phone] Care Team Providers Care Dermatology Specialist Name Role Phone [facility] Adult Primary Care AUTM [phone] [employer]ai [employer] AUTM [phone] Problems Description No Information Available Social History [...]
--- OUTSIDE RECORDS SUMMARY | 2020-04-01 22:00 | CCD | Continuity of Care Document ---
Author Author Cesilia ISSA MD Organization Unknown Address [address] [place] [address] Phone [phone] Care Team Providers Care Ferruler Name Role Phone Felicita Fernandez AUTM [phone] Problems Description No Information Available Social History [...] Available Procedures Date Code Description Status 01/31/2020 83249 X-Ray Elbow Complete Completed Medical Devices Description No Information Available Encounters Description No Information Available Assessments Date Code Description Provider 01/31/2020 M25.522 Pain in left elbow Pete carson MD 01/31/2020 G56.22 Lesion of ulnar nerve, left uppe r limb Pete Issa MD Plan of Treatment 01/31/2020 - Pete Issa MD* M25.522 Pain in left elbow* New Orders:* Referral, Ordered: 12/04/20 * Follow up:* f/u with [facility] for emg study f/u with [facility] for emg results * G56.22 Lesion of ulnar nerve, left upper limb Functional Status Description No Information Available Mental Status Description No Information Available Referrals Description No Information Available
--- OUTSIDE RECORDS SUMMARY | 2020-04-01 22:00 | CCD | Continuity of Care Document ---
Author Author Cesilia BAKER [place] Organization Unknown Address [address] [place] [address] [place] [address] Phone [phone] Care Team Providers Care Department Traffic Freight Router Name Role Phone [facility] Adult Primary Care AUTM [phone] Isai [employer] AUTM [phone] Problems Description No Information Available Social History [...] Range Note Group A Stretp Culture 01/03/2020 [facility] [address] [place] [address] [phone] Group A Strep Culture FULL REPORT IN [...] for screening for othe r viral diseases Reza DayAFrancie Plan of Treatment No Information Available Functional Status Description No Information Available Mental Status Description No Information Available Referrals Description No Information Available
--- OUTSIDE RECORDS SUMMARY | 2020-04-01 22:00 | CCD ---
Author Author [facility] Organization [facility] Address Unknown Phone Unavailable Care Team Providers Care Cotton Inspector Name Role Phone Felicita Fernandez Unavailable PROBLEMS Type Condition ICD9-CM Code [id number] Code Onset Dates Condition S tatus SNOMED Code Notes Problem Vitamin D deficiency E55.9 Active 40724454 Problem Amenorrhea N91.2 Active 61787225 Problem Crohn''s disease without com plication, unspecified gastrointestinal tract location K50.90 Active 64139020 Problem Anxiety F41.9 Active 60918748 ALLERGIES No Known Allergies ENCOUNTERS from 1996 to 2020-01-21 Encounter Location Date Provider Diagnosis [address] [address] Dec, Felicita Servage IMMUNIZATIONS Vaccine Route Administration Date Status Pneumococcal [...] Education Language: Question Answer Notes Languages spoken: Slovenian Anglican: Question Answer Notes Anglican No yazdanism beliefs that would impact health care. Sexual [...] Information RESULTS No Results REASON FOR VISIT lab results MEDICAL (GENERAL) HISTORY Type Description Date Medical History Crohns disease Medical History anxiety disorder Medical History asthma as a child grew out of it Medical History depression Surgical History No Surgical history information [facility] Goals Section No Information Health Concerns No Information MEDICAL EQUIPMENT No Information MENTAL STATUS No Information FUNCTIONAL STATUS No Information ASSESSMENTS No Information PLAN OF TREATMENT Medication Medication Name Sig Start Date Stop Date Sertraline HCl 50 MG 1 tablet Orally Once a day for 30 day(s) Nov, Next Appt Details Provider Name:Felicita Fernandez, 11:45:00 AM, [address] [place], [address], Insurance Providers Payer Name Payer Address Payer Phone Insured Name Patient Relati onship to Insured Coverage Start Date Coverage End Date [facility] [place] [address] [facility] [id number] LAURIE MANRIQUE
--- OUTSIDE RECORDS SUMMARY | 2020-04-01 22:01 | CCD ---
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 Body height 67 [in_i] 67 [in_i] MEDENT ([facility] ) 5'7" Body temperature 96.8 [degF] 96.8 [degF] MEDENT ([facility] ) Body mass index (BMI) [Ratio] 25.0 kg/m2 25.0 k g/m2 MEDENT ([facility], [facility]) Body height 65 [in_i] 65 [in_i] MEDENT ([facility], [facility]) 5'5" Body weight 150.00 [lb_av] 150.00 [lb_av] MEDEN T ([facility], [facility]) Body temperature 98.2 [degF] 98.2 [degF] MEDENT ([facility], [facility]) Oxygen saturation in Arterial blood by Pulse oximetry 99 % 99 % MEDENT ([facility], [facility]) Respiratory rate 12 /min 12 /min MEDENT ( [facility], [facility]) Heart rate 95 /min 95 /min MEDENT ([facility], [facility]) Diastolic blood pressure 74 mm[Hg] 74 mm[Hg] MEDENT ([facility], [facility]) Systolic blood pressure 137 mm[Hg] 137 mm[Hg] M EDENT ([facility], [facility]) Diastolic blood pressure 70 mm[Hg] 70 mm[Hg] eCW1 ([facility]) Systolic blood pressure 110 mm[Hg] 110 mm[Hg] e CW1 ([facility]) Body temperature 97.8 [degF] 97.8 [degF] eCW1 ( [facility]) Respiratory rate 16 /min 16 /min eCW1 ([facility]) Heart rate 88 /min 88 /min eCW1 ([facility]) Body mass index (BMI) [Ratio] 25.22 kg/m2 25.22 kg/m2 W1 ([facility]) Body height 65 [in_i] 65 [in_i] W1 ([facility]) Body weight 151.6 [lb_av] 151.6 [lb_av] eCW1 ([facility]) Diastolic blood pressure 68 mm[Hg] 68 mm[Hg] eCW1 ([facility]) Systolic blood pressure 102 mm[Hg] 102 mm[Hg] e CW1 ([facility]) Body temperature 97.9 [degF] 97.9 [degF] eCW1 ( [facility]) Respiratory rate 18 /min 18 /min eCW1 ([facility]) Heart rate 121 /min 121 /min eCW1 ([facility]) Body mass index (BMI) [Ratio] 25.62 kg/m2 25.62 kg/m2 W1 ([facility]) Body height 65 [in_i] 65 [in_i] eCW1 ([facility]) Body weight 154 [lb_av] 154 [lb_av] eCW1 ([facility]) Body mass index (BMI) [Ratio] 25.6 kg/m2 25.6 k g/m2 MEDENT ([facility], [facility]) Body height 65 [in_i] 65 [in_i] MEDENT ([facility]) 5'5" Body weight 154.00 [lb_av] 154.00 [lb_av] MEDEN T ([facility], [facility]) Body temperature 98.1 [degF] 98.1 [degF] MEDENT ([facility], [facility]) Oxygen saturation in Arterial blood by Pulse oximetry 98 % 98 % MEDENT ([facility], [facility]) Respiratory rate 12 /min 12 /min MEDENT ( [facility], [facility]) Heart rate 98 /min 98 /min MEDENT ([facility], [facility]) Diastolic blood pressure 81 mm[Hg] 81 mm[Hg] MEDENT ([facility], [facility]) Systolic blood pressure 106 mm[Hg] 106 mm[Hg] M EDENT ([facility], [facility]) Diastolic blood pressure 74 mm[Hg] 74 mm[Hg] eCW1 ([facility]) Systolic blood pressure 128 mm[Hg] 128 mm[Hg] e CW1 ([facility]) Body mass index (BMI) [Ratio] 25.79 kg/m2 25.79 kg/m2 eCW1 ([facility]) Body height 65 [in_us] 65 [in_us] eCW1 ([facility]) Body weight Measured 155 [lb_av] 155 [lb_av] eC W1 ([facility]) Diastolic blood pressure 60 mm[Hg] 60 mm[Hg] eCW1 ([facility]) Systolic blood pressure 110 mm[Hg] 110 mm[Hg] e CW1 ([facility]) Body temperature 97.4 [degF] 97.4 [degF] eCW1 ( [facility]) Respiratory rate 18 /min 18 /min eCW1 ([facility]) Heart rate 80 /min 80 /min eCW1 ([facility]) Body mass index (BMI) [Ratio] 25.46 kg/m2 25.46 kg/m2 eCW1 ([facility]) Body height 65 [in_us] 65 [in_us] eCW1 ([facility]) Body weight Measured 153 [lb_av] 153 [lb_av] eC W1 ([facility]) Diastolic blood pressure 60 mm[Hg] 60 mm[Hg] eCW1 ([facility]) Systolic blood pressure 98 mm[Hg] 98 mm[Hg] e CW1 ([facility]) Body temperature 98.4 [degF] 98.4 [degF] eCW1 ( [facility]) Respiratory rate 16 /min 16 /min eCW1 ([facility]) Heart rate 100 /min 100 /min eCW1 ([facility]) Body mass index (BMI) [Ratio] 24.96 kg/m2 24.96 kg/m2 eCW1 ([facility]) Body height 65 [in_us] 65 [in_us] eCW1 ([facility]) Body weight Measured 150 [lb_av] 150 [lb_av] eC W1 ([facility]) Diastolic blood pressure 78 mm[Hg] 78 mm[Hg] eCW1 ([facility]) Systolic blood pressure 118 mm[Hg] 118 mm[Hg] e CW1 ([facility]) Body mass index (BMI) [Ratio] 24.39 kg/m2 24.39 kg/m2 eCW1 ([facility]) Body height 65 [in_us] 65 [in_us] eCW1 ([facility]) Body weight Measured 146.6 [lb_av] 146.6 [lb_av ] eCW1 ([facility]) Patient Treatment Plan of Care Planned Activity Planned Date Details Description Data Source (s) Sertraline 50 MG Oral Tablet 12/23/2019 12:00:00 AM EDT eCW1 ([facility]) Sertraline 50 MG Oral Tablet 12/23/2019 12:00:00 AM EDT eCW1 ([facility]) Sertraline 50 MG Oral Tablet 12/23/2019 12:00:00 AM EDT eCW1 ([facility]) Sertraline 50 MG Oral Tablet 12/23/2019 12:00:00 AM EDT eCW1 ([facility]) Augmentin 875-125 MG 11/29/2019 12:00:00 AM EDT eCW1 ([facility]) Augmentin 875-125 MG 11/29/2019 12:00:00 AM EDT eCW1 ([facility]) Augmentin 875-125 MG 11/29/2019 12:00:00 AM EDT eCW1 ([facility]) Orthopedic Boots Extra Depth 06/07/2019 12:00:00 AM EDT eCW1 ([facility]) Cimetidine 200 MG Oral Tablet 05/01/2019 12:00:00 AM EST eCW1 ([facility])
[2020-04-01] MEDS ORDERED: NEUR100C PO (23:39)
[2020-04-01] MEDS ORDERED: GABAPENTIN 100 MG CAP PO ONE (23:45)
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
[2020-04-02 00:01] VITALS: BP 123/62
== END 2020-04-02 00:02 | disposition home or self-care (01) ==
LOC: M ED 21:50
DX: M79.602 Pain in left arm (principal); K50.90 Crohn's disease, unspecified, without complications; Z97.5 Presence of (intrauterine) contraceptive device; Z88.8 Allergy status to other drugs, medicaments and biological substances

== ENCOUNTER → 2020-04-08 | Outpatient (CLI) | payer OTHER ==
[~2020-04-08] MED LIST changes: +NEUR100C PO
[2020-04-08 19:07] LABS: IMMUNOGLOBULIN A 54.6 MG/DL (70-400)
== END ==
LOC: M LAB 12:17
PROVIDERS: ATTEND Internal Medicine Gastroenterology
DX: D80.2 Selective deficiency of immunoglobulin A [IgA] (principal); K50.00 Crohn's disease of small intestine without complications

== ENCOUNTER → 2020-04-12 | Outpatient (REF) | payer OTHER | LOC: M LAB REF 09:19 | PROVIDERS: ATTEND Physician Assistant Medical | DX: K50.00 Crohn's disease of small intestine without complications (principal) ==

== ENCOUNTER 2020-06-26 20:18 | Emergency (ER) | payer OTHER ==
[~2020-06-26] VITALS: Ht 165.1 cm; Wt 74.4 kg
[2020-06-26] MEDS ORDERED: SERT50TA29 PO (20:42)
[2020-06-26] MEDS ORDERED: diphenhydrAMINE 50MG/ML VIAL (J1200) IV STA (22:26)
[2020-06-26] MEDS ORDERED: KETOROLAC 30 MG/ML 1ML VIAL IV ONE (22:30)
[2020-06-26] MEDS ORDERED: NS 1,000 ML IV ONE (22:30)
[2020-06-26] MEDS ORDERED: METOCLOPRAMIDE INJ 10MG/2ML VIAL (J2765 PER 1) IV ONE (22:30)
[2020-06-26] MEDS ORDERED: TETRACAINE 0.5% OPHTH SOLN 4ML OD ONE (22:30)
--- NOTE | 2020-06-26 23:19 | REPVR ---
PROCEDURE INFORMATION: Exam: CT Head Without Contrast Exam date and time: 06/26/2020 10:26 PM Age: 25 years old Clinical indication: Pain; Headache not specified; Additional info: Severe right sided headache TECHNIQUE: Imaging protocol: Computed tomography of the head without contrast. Radiation optimization: All CT scans at this facility use at least one of these dose optimization techniques: automated exposure control; mA and/or kV adjustment per patient size (includes targeted exams where dose is matched to clinical indication); or iterative reconstruction. COMPARISON: No relevant prior studies available. FINDINGS: Brain: No intracranial hemorrhage or extra-axial fluid collection. No evidence of mass effect or midline shift. Jarquin-white matter differentiation is intact. Cerebral ventricles: No ventriculomegaly. Bones/joints: No acute osseus lesion or fracture. Paranasal sinuses: Visualized sinuses are unremarkable. No fluid levels. Mastoid air cells: Unremarkable. Soft tissues: Unremarkable. IMPRESSION: No acute intracranial pathology. Electronically signed by: Yasir Macias On 06/26/2020 23:18:59 PM
[2020-06-26] MEDS ORDERED: CEPHALEXIN 500 MG CAP PO ONE (23:50)
[2020-06-27] VITALS: BP 112/71
== END 2020-06-27 00:33 | disposition home or self-care (01) ==
LOC: M ED 20:18
DX: R51.9 Headache, unspecified (principal); F41.9 Anxiety disorder, unspecified; F52.9 Unspecified sexual dysfunction not due to a substance or known physiological condition; Z97.5 Presence of (intrauterine) contraceptive device
CPT/HCPCS: 70450; 84702; 96361; 96374; 96375; 99284; J1200; J1885; J2765

== ENCOUNTER → 2020-07-01 | Outpatient (CLI) | payer OTHER ==
[~2020-07-01] MED LIST changes: +E-Z-GAS II EFFERVESCENT PACKET (SODIUM BICARB./CITRIC ACID/SIMETHICONE) As Ordered ONE; +E-Z-HD 98% w/w 340GM SUSP BTL As Ordered ONE; +E-Z-PAQUE 96% w/w SUSP 176GM BTL As Ordered ONE; +SERT50TA29 PO
--- NOTE | 2020-07-01 16:22 | REP ---
INDICATION: CROHN'S DX. COMPARISON: None TECHNIQUE: This procedure was performed by Daphnie Alcantara [facility], under the direct supervision of Dr. Jarquin. Images were reviewed with Dr. Jarquin prior to dictation. Liquid barium and gas producing crystals were given in the erect position, as well as liquid barium in the prone oblique position in order to perform a double contrast upper GI examination. Additionally liquid barium was given at the end of the examination in order to perform a small-bowel follow-through. FINDINGS: The top loader film shows no organomegaly or pathological masses. The intestinal gas pattern is unremarkable. There is an IUD in the pelvis. The oral and pharyngeal stages of deglutition were unremarkable. Esophageal transport is prompt and efficient and there is no evidence of esophagitis, stricture, or mucosal ring. There is no evidence of a small hiatal hernia. Gastroesophageal reflux was visualized into the distal esophagus. The stomach knox are normally outlined. The rugal folds are smooth and regular. There is no gastritis, neoplasm, or ulcerative disease. The duodenal knox are normally outlined. The mucosal folds are smooth and regular. There is no duodenitis, peptic ulcer disease or neoplasm. The visualized portion of the proximal small bowel appears normal in course and caliber. The barium column was followed through the small bowel to the level of the terminal ileum. Small bowel transit time is approximately 40 minutes. During fluoroscopy gentle palpation shows all loops are freely movable and pliable. There is no fixed angulated loops. The small bowel mucosal pattern is normal in course and caliber. There is no transition to suggest a partial small bowel obstruction. Spot filming of the terminal ileum shows it to be unremarkable. IMPRESSION: 1. Gastroesophageal reflux into the distal esophagus. Small hiatal hernia. 2. Small bowel transit time of approximately 40 minutes. 1.2 minutes of fluoroscopy time was utilized for this procedure. Some fluoroscopic images are performed with last image hold technology. These images require no additional radiation. <Electronically signed by Daphnie Alcantara > 07/01/20 [id number] <Electronically signed by Juan Jarquin > 07/01/20 [id number]
== END ==
LOC: M RAD 08:51
PROVIDERS: ATTEND Internal Medicine Gastroenterology
DX: K50.90 Crohn's disease, unspecified, without complications (principal); K44.9 Diaphragmatic hernia without obstruction or gangrene; K21.9 Gastro-esophageal reflux disease without esophagitis

== ENCOUNTER → 2020-07-12 | Outpatient (CLI) | payer OTHER ==
[~2020-07-12] MED LIST changes: -E-Z-GAS II EFFERVESCENT PACKET (SODIUM BICARB./CITRIC ACID/SIMETHICONE) As Ordered ONE; -E-Z-HD 98% w/w 340GM SUSP BTL As Ordered ONE; -E-Z-PAQUE 96% w/w SUSP 176GM BTL As Ordered ONE
== END ==
LOC: M LAB 13:32
PROVIDERS: ATTEND Physician Assistant
DX: M35.00 Sjogren syndrome, unspecified (principal)

== ENCOUNTER → 2020-11-12 | Outpatient (REF) | payer OTHER | LOC: M SFHCPLAZ 09:58 | PROVIDERS: ATTEND Physician Assistant | DX: R09.89 Other specified symptoms and signs involving the circulatory and respiratory systems (principal) ==

== ENCOUNTER → 2020-12-24 | Outpatient (REF) | payer OTHER | LOC: M SFHCPLAZ 09:53 | PROVIDERS: ATTEND Physician Assistant | DX: R05.9 Cough, unspecified (principal) ==

== ENCOUNTER → 2020-12-31 | Outpatient (REF) | payer OTHER | LOC: M SFHCPLAZ 12:57 | PROVIDERS: ATTEND Physician Assistant | DX: R05.9 Cough, unspecified (principal) ==

== ENCOUNTER → 2021-02-09 | Outpatient (CLI) | payer OTHER ==
[2021-02-09 18:14] LABS: BASO # 0.1 10^3/uL (0.0-0.2); BASO % 0.7 % (0.0-1.0); EOS # 0.1 10^3/uL (0.0-0.5); EOS % 1.7 % (0.0-3.0); HEMATOCRIT 39.3 % (36.0-47.0); LYMPH # 2.3 10^3/uL (1.5-5.0); LYMPH % 31.9 % (24.0-44.0); MEAN CORPUSCULAR HEMOGLOBIN 31.6 pg (27.0-33.0); MEAN CORPUSCULAR HGB CONC 33.1 g/dl (32.0-36.5); MEAN CORPUSCULAR VOLUME 95.6 fl (80.0-96.0); MONO # 0.5 10^3/uL (0.0-0.8); MONO % 6.8 % (2.0-8.0); NEUTROPHILS # 4.2 10^3/uL (1.5-8.5); NEUTROPHILS % 58.6 % (36.0-66.0); PLATELET COUNT, AUTOMATED 169 10^3/uL (150-450); RED BLOOD COUNT 4.11 10^6/uL (4.00-5.40); WHITE BLOOD COUNT 7.2 10^3/uL (4.0-10.0)
[2021-02-09 18:47] LABS: ALBUMIN 3.9 GM/DL (3.2-5.2); ALT/SGPT 29 U/L (12-78); BILIRUBIN,TOTAL 0.2 MG/DL (0.2-1.0); BLOOD UREA NITROGEN 13 MG/DL (7-18); CALCIUM LEVEL 9.3 MG/DL (8.5-10.1); CARBON DIOXIDE LEVEL 32 MEQ/L (21-32); CHLORIDE LEVEL 107 MEQ/L (98-107); CREATININE FOR GFR 0.67 MG/DL (0.55-1.30); GLOMERULAR FILTRATION RATE > 60.0 (>60); GLUCOSE, FASTING 104 MG/DL (70-100); POTASSIUM SERUM 4.1 MEQ/L (3.5-5.1); RHEUMATOID FACTOR QUANT < 10.0 IU/ML (<15.0); SODIUM LEVEL 142 MEQ/L (136-145); TOTAL 25(OH) VITAMIN D 13.6 NG/ML (30.0-100.0); TOTAL PROTEIN 6.9 GM/DL (6.4-8.2)
[2021-02-09 18:56] LABS: ERYTHROCYTE SEDIMENTATION RATE 9 mm/hr (0-20)
[2021-02-11 12:09] LABS: ANTINUCLEAR ANTIBODIES DIRECT Negative (Negative)
== END ==
LOC: M LAB 17:14
PROVIDERS: ATTEND Psychiatry & Neurology Neurology
DX: R51.9 Headache, unspecified (principal)

== ENCOUNTER → 2021-02-11 | Outpatient (CLI) | payer OTHER ==
--- NOTE | 2021-02-11 12:49 | REP ---
INDICATION: SIALOADENITIS COMPARISON: None. TECHNIQUE: Jarquin scale and color evaluation using linear high-frequency transducer. FINDINGS: Ultrasound examination of the bilateral submandibular glands demonstrates relatively symmetric normal appearance. No ductal dilatation or obvious calcifications/sialoliths are identified. Bilateral lymph nodes adjacent to the parotid gland are relatively symmetric and normal in appearance as well measuring 2.1 x 0.6 x 1.6 cm on the right and 2.5 x 0.7 x 1.7 cm on the left. IMPRESSION: Normal appearance of the bilateral submandibular glands without ductal dilatation or calcifications/sialolith <Electronically signed by Tono Witt > 02/11/21 [id number]
== END ==
LOC: M RAD 08:37
PROVIDERS: ATTEND Otolaryngology
DX: K11.20 Sialoadenitis, unspecified (principal)

== ENCOUNTER → 2021-06-14 | Outpatient (CLI) | payer OTHER | LOC: M WHC 07:10 | PROVIDERS: ATTEND Internal Medicine Gastroenterology | DX: R10.84 Generalized abdominal pain (principal); K50.00 Crohn's disease of small intestine without complications ==

== ENCOUNTER → 2021-07-12 | Outpatient (CLI) | payer OTHER ==
[2021-07-12 19:12] LABS: HEPATITIS B SURFACE ANTIBODY POSITIVE (POSITIVE); HEPATITIS B SURFACE ANTIGEN NEGATIVE (NEGATIVE); HEPATITIS C VIRUS ABY INDEX 0.1 INDEX (<0.8)
== END ==
LOC: M LAB 16:06
PROVIDERS: ATTEND Internal Medicine Gastroenterology
DX: K50.00 Crohn's disease of small intestine without complications (principal)

== ENCOUNTER → 2021-08-18 | Outpatient (REF) | payer OTHER | LOC: M LAB REF 11:31 | PROVIDERS: ATTEND Internal Medicine Gastroenterology | DX: K50.00 Crohn's disease of small intestine without complications (principal) ==

== ENCOUNTER → 2021-09-27 | Outpatient (CLI) | payer OTHER ==
[2021-09-27 11:58] LABS: HEMOGLOBIN A1c 5.1 %
== END ==
LOC: M PLALAB 08:04
PROVIDERS: ATTEND Nurse Practitioner Adult Health
DX: Z83.3 Family history of diabetes mellitus (principal)

== ENCOUNTER → 2021-10-07 | Outpatient (CLI) | payer OTHER | LOC: M LAB 10-06 15:59 | PROVIDERS: ATTEND Internal Medicine Rheumatology | DX: M13.0 Polyarthritis, unspecified (principal); R53.83 Other fatigue; M35.7 Hypermobility syndrome ==

== ENCOUNTER → 2022-01-28 | Outpatient (CLI) | payer OTHER | LOC: M CARPUL 08:18 | PROVIDERS: ATTEND Internal Medicine Cardiovascular Disease | DX: R06.02 Shortness of breath (principal) ==

== ENCOUNTER → 2022-02-22 | Outpatient (CLI) | payer OTHER | LOC: M SLEEP HO 11:59 | PROVIDERS: ATTEND Internal Medicine Cardiovascular Disease | DX: R06.83 Snoring (principal) ==

== ENCOUNTER → 2022-03-12 | Outpatient (CLI) | payer OTHER | LOC: M LAB 11:26 | PROVIDERS: ATTEND Obstetrics & Gynecology | DX: O20.9 Hemorrhage in early pregnancy, unspecified (principal) ==

== ENCOUNTER → 2022-04-29 | Outpatient (CLI) | payer OTHER ==
[2022-04-29 11:17] LABS: THYROID STIMULATING HORMONE 1.209 uIU/ML (0.55-4.78)
[2022-04-29 11:18] LABS: FERRITIN 43.7 NG/ML (7.3-270.7)
[2022-04-29 11:19] LABS: FOLATE 10.54 NG/ML (>5.4); FREE T4 1.25 NG/DL (0.89-1.76)
== END ==
LOC: M PLALAB 08:38
PROVIDERS: ATTEND Registered Nurse
DX: R53.83 Other fatigue (principal)

== ENCOUNTER → 2023-02-14 | Outpatient (REF) ==
[2023-02-14 11:42] LABS: RSV AMPLIFICATION NEGATIVE (NEGATIVE)
== END ==
LOC: M EMP 09:34
PROVIDERS: ATTEND Family Medicine
DX: Z11.52 Encounter for screening for COVID-19 (principal)

== ENCOUNTER → 2023-05-15 | Outpatient (REF) | LOC: M EMP 08:02 | PROVIDERS: ATTEND Family Medicine | DX: Z11.52 Encounter for screening for COVID-19 (principal) ==

== ENCOUNTER → 2023-08-04 | Outpatient (REF) ==
[~2023-08-04] MED LIST changes: +ONDA-282 PO; -ONDA4TAB6 PO
== END ==
LOC: M EMP 08:24
PROVIDERS: ATTEND Family Medicine
DX: Z11.52 Encounter for screening for COVID-19 (principal)

== ENCOUNTER → 2023-09-29 | Outpatient (CLI) | payer OTHER ==
[2023-09-29 09:15] LABS: HEMATOCRIT 42.1 % (36.0-47.0); MEAN CORPUSCULAR HEMOGLOBIN 31.6 pg (27.0-33.0); MEAN CORPUSCULAR HGB CONC 33.3 g/dl (32.0-36.5); PLATELET COUNT, AUTOMATED 193 10^3/uL (150-450); RED BLOOD COUNT 4.43 10^6/uL (4.00-5.40); WHITE BLOOD COUNT 5.8 10^3/uL (4.0-10.0)
[2023-09-29 09:35] LABS: ALBUMIN 3.9 G/DL (3.2-5.2); ALKALINE PHOSPHATASE 70 U/L (46-116); ALT/SGPT 23 U/L (7.0-40); AST/SGOT 16 U/L (<34); BILIRUBIN,TOTAL 0.5 MG/DL (0.3-1.2); BLOOD UREA NITROGEN 10 MG/DL (9-23); CALCIUM LEVEL 9.3 MG/DL (8.5-10.1); CARBON DIOXIDE LEVEL 28 MMOL/L (20-31); CHLORIDE LEVEL 107 MMOL/L (98-107); CREATININE FOR GFR 0.64 MG/DL (0.55-1.30); GLOMERULAR FILTRATION RATE > 60.0 (>60); GLUCOSE, FASTING 98 MG/DL (60-100); POTASSIUM SERUM 4.2 MMOL/L (3.5-5.1); SODIUM LEVEL 140 MMOL/L (136-145); TOTAL PROTEIN 6.7 G/DL (5.7-8.2)
[2023-09-29 09:36] LABS: HCG, SERUM QUALITATIVE POSITIVE (NEGATIVE); THYROID STIMULATING HORMONE 1.353 uIU/ML (0.55-4.78)
[2023-09-29 09:37] LABS: FREE T4 1.21 NG/DL (0.89-1.76)
[2023-09-29 10:03] LABS: HCG, SERUM QUANTITATIVE 2059.5 MIU/ML (<4.2)
== END ==
LOC: M LAB 07:39
PROVIDERS: ATTEND Nurse Practitioner Adult Health
DX: Z00.00 Encounter for general adult medical examination without abnormal findings (principal); E55.9 Vitamin D deficiency, unspecified; N92.6 Irregular menstruation, unspecified; Z13.29 Encounter for screening for other suspected endocrine disorder; Z83.3 Family history of diabetes mellitus

== ENCOUNTER → 2023-10-19 | Outpatient (REF) | LOC: M EMP 10:40 | PROVIDERS: ATTEND Family Medicine | DX: Z11.52 Encounter for screening for COVID-19 (principal) ==

== ENCOUNTER 2023-11-11 10:11 | Emergency (ER) | payer OTHER ==
[~2023-11-11] VITALS: Ht 165.1 cm; Wt 77.4 kg
[2023-11-11 11:24] LABS: BASO % 0.4 % (0.0-1.0); EOS # 0.1 10^3/uL (0.0-0.5); EOS % 1.1 % (0.0-3.0); HEMATOCRIT 38.8 % (36.0-47.0); HEMOGLOBIN 13.5 g/dl (12.0-15.5); LYMPH # 1.2 10^3/uL (1.5-5.0); LYMPH % 16.4 % (24.0-44.0); MEAN CORPUSCULAR HEMOGLOBIN 32.2 pg (27.0-33.0); MEAN CORPUSCULAR HGB CONC 34.8 g/dl (32.0-36.5); MEAN CORPUSCULAR VOLUME 92.6 fl (80.0-96.0); MONO # 0.4 10^3/uL (0.0-0.8); MONO % 5.7 % (2.0-8.0); NEUTROPHILS # 5.6 10^3/uL (1.5-8.5); PLATELET COUNT, AUTOMATED 185 10^3/uL (150-450); RED BLOOD COUNT 4.19 10^6/uL (4.00-5.40); WHITE BLOOD COUNT 7.4 10^3/uL (4.0-10.0)
[2023-11-11] MEDS: ACETAMINOPHEN *IV* 1,000 MG in IV 1 EA IV ONE (11:27)
[2023-11-11 11:49] LABS: ALBUMIN 3.3 G/DL (3.2-5.2); ALKALINE PHOSPHATASE 66 U/L (46-116); ALT/SGPT 18 U/L (7.0-40); AST/SGOT 13 U/L (<34); BILIRUBIN,DIRECT 0.1 MG/DL (<0.4); BILIRUBIN,TOTAL 0.5 MG/DL (0.3-1.2); BLOOD UREA NITROGEN 6 MG/DL (9-23); CALCIUM LEVEL 9.5 MG/DL (8.5-10.1); CARBON DIOXIDE LEVEL 27 MMOL/L (20-31); CHLORIDE LEVEL 107 MMOL/L (98-107); CREATININE FOR GFR 0.52 MG/DL (0.55-1.30); GLOMERULAR FILTRATION RATE > 60.0 (>60); GLUCOSE, FASTING 87 MG/DL (60-100); POTASSIUM SERUM 4.1 MMOL/L (3.5-5.1); SODIUM LEVEL 137 MMOL/L (136-145); TOTAL PROTEIN 6.6 G/DL (5.7-8.2)
[2023-11-11 11:57] LABS: HCG, SERUM QUANTITATIVE 72910.7 MIU/ML (<4.2)
[2023-11-11 12:25] VITALS: BP 104/64; TEMP 97.9; O2SAT 99
[2023-11-11] MEDS ORDERED: CEPH500C PO (12:45)
== END 2023-11-11 13:01 | disposition home or self-care (01) ==
LOC: M ED 10:11
DX: R10.9 Unspecified abdominal pain (principal); R82.71 Bacteriuria; J45.909 Unspecified asthma, uncomplicated; K50.90 Crohn's disease, unspecified, without complications; Z91.048 Other nonmedicinal substance allergy status; Z79.2 Long term (current) use of antibiotics
CPT/HCPCS: 80048; 80076; 81001; 84702; 85025; 87086; 96374; 99283; J0131

== ENCOUNTER → 2023-12-08 | Outpatient (REF) ==
[~2023-12-08] MED LIST changes: +CEPH500C PO
== END ==
LOC: M EMP 08:04
PROVIDERS: ATTEND Family Medicine
DX: Z11.52 Encounter for screening for COVID-19 (principal)

== ENCOUNTER → 2023-12-12 | Outpatient (REF) | payer OTHER ==
[2023-12-12 14:56] LABS: GC DNA AMPLIFICATION NEGATIVE (NEGATIVE)
== END ==
LOC: M PLALAB 09:46
PROVIDERS: ATTEND Obstetrics & Gynecology
DX: Z36.89 Encounter for other specified antenatal screening (principal); Z3A.15 15 weeks gestation of pregnancy

== ENCOUNTER → 2024-01-01 | Outpatient (CLI) | payer OTHER | LOC: M RAD 09:08 | PROVIDERS: ATTEND Obstetrics & Gynecology | DX: Z34.82 Encounter for supervision of other normal pregnancy, second trimester (principal) ==

== ENCOUNTER → 2024-01-05 | Outpatient (CLI) | payer OTHER ==
[2024-01-05 15:43] LABS: HEMATOCRIT 36.1 % (36.0-47.0); HEMOGLOBIN 12.6 g/dl (12.0-15.5); MEAN CORPUSCULAR HGB CONC 34.9 g/dl (32.0-36.5); MEAN CORPUSCULAR VOLUME 94.5 fl (80.0-96.0); PLATELET COUNT, AUTOMATED 180 10^3/uL (150-450); RED BLOOD COUNT 3.82 10^6/uL (4.00-5.40); WHITE BLOOD COUNT 8.8 10^3/uL (4.0-10.0)
[2024-01-05 16:47] LABS: HIV 1&2 SCREEN NEGATIVE (NEGATIVE)
[2024-01-05 16:54] LABS: HEPATITIS C VIRUS ABY INDEX < 0.02 INDEX (<0.8)
== END ==
LOC: M LAB 14:16
PROVIDERS: ATTEND Obstetrics & Gynecology
DX: Z34.81 Encounter for supervision of other normal pregnancy, first trimester (principal)

== ENCOUNTER 2024-01-15 11:59 | Outpatient (CLI) | payer OTHER ==
[~2024-01-15] VITALS: Ht 165.1 cm; Wt 81.3 kg
[2024-01-15 12:22] VITALS: BP 115/71
[2024-01-15] MEDS ORDERED: HOME MED LIST COMPLETE! XX SCH (12:25)
[2024-01-15 13:55] LABS: APPEARANCE, URINE CLEAR (CLEAR); BACTERIA, URINE AUTO 1+ (NEGATIVE); BILIRUBIN, URINE AUTO NEGATIVE (NEGATIVE); BLOOD, URINE BLOOD NEGATIVE (NEGATIVE); COLOR, URINE YELLOW (YELLOW); GLUCOSE, URINE (UA) AUTO NEGATIVE (NEGATIVE); KETONE, URINE AUTO NEGATIVE (NEGATIVE); LEUKOCYTE ESTERASE, URINE AUTO NEGATIVE (NEGATIVE); NITRITE, URINE AUTO NEGATIVE (NEGATIVE); PROTEIN, URINE AUTO NEGATIVE (NEGATIVE); RBC, URINE AUTO 0 /HPF (0-3); SQUAMOUS EPITHELIAL CELL UR AU 1 /HPF (0-6); UROBILINOGEN, URINE AUTO 0.2 mg/dL (0.0-2.0); WBC, URINE AUTO 1 /HPF (0-3)
== END 2024-01-15 13:05 | disposition home or self-care (01) ==
LOC: M LDO 11:59
PROVIDERS: ATTEND Advanced Practice Midwife
DX: O26.892 Other specified pregnancy related conditions, second trimester (principal); O99.612 Diseases of the digestive system complicating pregnancy, second trimester; O99.342 Other mental disorders complicating pregnancy, second trimester; O99.352 Diseases of the nervous system complicating pregnancy, second trimester; N89.8 Other specified noninflammatory disorders of vagina; K50.90 Crohn's disease, unspecified, without complications; F41.9 Anxiety disorder, unspecified; G90.A Postural orthostatic tachycardia syndrome [POTS]; Z3A.20 20 weeks gestation of pregnancy
CPT/HCPCS: 76815; 81001; G0463

== ENCOUNTER → 2024-02-15 | Outpatient (CLI) | payer OTHER ==
[2024-02-15 15:21] LABS: HEMATOCRIT 35.3 % (36.0-47.0); HEMOGLOBIN 12.1 g/dl (12.0-15.5); MEAN CORPUSCULAR HEMOGLOBIN 32.4 pg (27.0-33.0); MEAN CORPUSCULAR HGB CONC 34.3 g/dl (32.0-36.5); MEAN CORPUSCULAR VOLUME 94.6 fl (80.0-96.0); PLATELET COUNT, AUTOMATED 201 10^3/uL (150-450); RED BLOOD COUNT 3.73 10^6/uL (4.00-5.40); WHITE BLOOD COUNT 9.1 10^3/uL (4.0-10.0)
[2024-02-15 16:19] LABS: HIV 1&2 SCREEN NEGATIVE (NEGATIVE)
[2024-02-15 16:27] LABS: HEPATITIS C VIRUS ABY INDEX < 0.02 INDEX (<0.8)
[2024-02-15 16:49] LABS: GC DNA AMPLIFICATION NEGATIVE (NEGATIVE)
== END ==
LOC: M LAB 12:27
PROVIDERS: ATTEND Nurse Practitioner Family
DX: Z34.82 Encounter for supervision of other normal pregnancy, second trimester (principal)

== ENCOUNTER 2024-03-26 21:14 | Outpatient (CLI) | payer OTHER ==
[~2024-03-26] VITALS: Ht 165.1 cm; Wt 86.2 kg
[2024-03-26 21:25] VITALS: BP 117/65
[2024-03-26 22:39] VITALS: BP 108/65
[2024-03-26 23:50] LABS: KETONE, URINE AUTO RFX NEGATIVE (NEGATIVE); NITRITE, URINE AUTO RFX NEGATIVE (NEGATIVE); RBC, URINE AUTO RFX 0 /HPF (0-3); SQUAM EPITHELIAL CELL UR AURFX 1 /HPF (0-6); WBC, URINE AUTO RFX 1 /HPF (0-3)
[2024-03-27 00:06] LABS: LEUKOCYTE ESTERASE UR AUTO RFX TRACE (NEGATIVE)
[2024-03-27 01:09] LABS: GC DNA AMPLIFICATION NEGATIVE (NEGATIVE)
== END 2024-03-26 22:59 | disposition home or self-care (01) ==
LOC: M LDO 21:14
PROVIDERS: ATTEND Advanced Practice Midwife
DX: O26.893 Other specified pregnancy related conditions, third trimester (principal); O24.410 Gestational diabetes mellitus in pregnancy, diet controlled; R25.2 Cramp and spasm; Z3A.30 30 weeks gestation of pregnancy
CPT/HCPCS: 59025; 81001; 87086; 87810; 87850; G0463

== ENCOUNTER → 2024-04-22 | Outpatient (REF) | payer OTHER ==
[~2024-04-22] MED LIST changes: +FAMO10TA50 PO
== END ==
LOC: M SFHCPLAZ 14:58
PROVIDERS: ATTEND Physician Assistant Medical
DX: J06.9 Acute upper respiratory infection, unspecified (principal)

== ENCOUNTER → 2024-04-23 | Outpatient (CLI) | payer OTHER ==
[~2024-04-23] MED LIST changes: -FAMO10TA50 PO
== END ==
LOC: M WHC 06:49
PROVIDERS: ATTEND Obstetrics & Gynecology
DX: O24.419 Gestational diabetes mellitus in pregnancy, unspecified control (principal)

== ENCOUNTER → 2024-05-02 | Outpatient (REF) | payer OTHER | LOC: M SFHCWAGY 17:13 | PROVIDERS: ATTEND Specialist | DX: Z34.83 Encounter for supervision of other normal pregnancy, third trimester (principal) ==

== ENCOUNTER 2024-05-23 18:01 | Inpatient (IN) | payer OTHER ==
[~2024-05-23] VITALS: Ht 165.1 cm; Wt 90.9 kg
[2024-05-23 18:16] VITALS: BP 135/98
[2024-05-23] MEDS ORDERED: FAMO10TA50 PO (18:16)
[2024-05-23 18:52] LABS: HEMATOCRIT 35.8 % (36.0-47.0); MEAN CORPUSCULAR HEMOGLOBIN 30.2 pg (27.0-33.0); MEAN CORPUSCULAR HGB CONC 33.5 g/dl (32.0-36.5); MEAN CORPUSCULAR VOLUME 90.2 fl (80.0-96.0); PLATELET COUNT, AUTOMATED 190 10^3/uL (150-450); RED BLOOD COUNT 3.97 10^6/uL (4.00-5.40)
[2024-05-23 19:46] VITALS: BP 133/90
[2024-05-23 19:52] LABS: HIV 1&2 SCREEN NEGATIVE (NEGATIVE)
[2024-05-23 20:00] LABS: HEPATITIS C VIRUS ABY INDEX 0.02 INDEX (<0.8)
[2024-05-23 21:51] VITALS: BP 129/81
[2024-05-24] VITALS (27 sets, daily range): BP systolic 97–157; BP diastolic 55–97; TEMP 99; O2SAT 95–98
[2024-05-24] MEDS ORDERED: METHYLERGONOVINE MALEATE 0.2MG/ML 1ML VIAL IM PRN (01:40)
[2024-05-24] MEDS ORDERED: LIDOCAINE 1% MDV 20ML VIAL INFIL PRN (01:40)
[2024-05-24] MEDS ORDERED: OXYTOCIN DRIP 30 UNITS in IV 1 EA IV PRN (01:40)
[2024-05-24] MEDS ORDERED: TRANEXAMIC ACID INJection 1,000 MG in NS 100 ML IV PRN (01:40)
[2024-05-24] MEDS ORDERED: CARBOPROST TROMETHAMINE 250 MCG/ML AMP IM PRN (01:40)
[2024-05-24] MEDS: LR 1,000 ML IV ONE (02:16)
[2024-05-24] MEDS ORDERED: diphenhydrAMINE 50MG/ML VIAL IV PRN (02:45)
[2024-05-24] MEDS ORDERED: NALOXONE INJ 0.4MG/1ML VIAL IV PRN (02:45)
[2024-05-24] MEDS ORDERED: ePHEDrine SULFATE 25 MG/5 ML(5MG/ML) SYRINGE IVP PRN (02:45)
[2024-05-24] MEDS ORDERED: EPIDURAL/PCA KEYS XX PRN (02:45)
[2024-05-24] MEDS ORDERED: LR 500 ML IV PRN (02:45)
[2024-05-24] MEDS ORDERED: FENTANYL 2MCG/ML ROPIVACAINE 0.2% IN 0.9% NACL 100ML IVBAG As Ordered ONE (02:50)
[2024-05-24] MEDS: FENTANYL/ROPIVACAINE/NACL BAG 100 ML EPIDURAL SCH (02:54)
[2024-05-24] MEDS: LR 1,000 ML IV SCH (03:14)
[2024-05-24] MEDS: OXYTOCIN DRIP 30 UNITS in IV 1 EA IV SCH (03:55)
[2024-05-24] MEDS: ONDANSETRON 4MG 2ML VIAL IV PRN (05:40)
[2024-05-24] MEDS: PRENATAL VITAMINS CHEWABLE TABLET PO SCH (09:00)
[2024-05-24] MEDS ORDERED: ACETAMINOPHEN 325 MG TAB PO PRN (09:15)
[2024-05-24] MEDS ORDERED: RHOGAM 300MCG (1500IU) INJ IM SCH (09:15)
[2024-05-24] MEDS ORDERED: MOM 30ML SUSPENSION UDC PO PRN (09:15)
[2024-05-24] MEDS ORDERED: DOCUSATE SODIUM 100MG CAPSULE PO PRN (09:15)
[2024-05-24] MEDS ORDERED: METHYLERGONOVINE MALEATE 0.2 MG TAB PO PRN (09:15)
[2024-05-24] MEDS ORDERED: ACETAMINOPHEN 500 MG TAB PO PRN (09:15)
[2024-05-25 05:48] VITALS: BP 116/64; O2SAT 97
[2024-05-25] MEDS: DIBUCAINE 1% OINTMENT 30GM TOP PRN (09:04)
[2024-05-26] MEDS ORDERED: MEASLES,MUMPS,RUBELLA VACCINE INJ (MMR-II) SC.IMMUN ONE (09:00)
== END 2024-05-25 18:20 | disposition home or self-care (01) | DRG 560 ==
LOC: M LDI 18:01 → M OBS 05-24 11:05
PROVIDERS: ADMIT Obstetrics & Gynecology; ATTEND Advanced Practice Midwife
PROC: 10E0XZZ Delivery of Products of Conception, External Approach (ICD-10-PCS; principal; 2024-05-24)
PROC: 0HQ9XZZ Repair Perineum Skin, External Approach (ICD-10-PCS; 2024-05-24)
DX: O24.420 Gestational diabetes mellitus in childbirth, diet controlled (principal); O69.81X0 Labor and delivery complicated by cord around neck, without compression, not applicable or unspecified; Z3A.39 39 weeks gestation of pregnancy; Z88.6 Allergy status to analgesic agent; Z91.048 Other nonmedicinal substance allergy status; O70.0 First degree perineal laceration during delivery; Z37.0 Single live birth

== ENCOUNTER → 2024-06-11 | Outpatient (CLI) | payer OTHER ==
[~2024-06-11] MED LIST changes: +FAMO10TA50 PO
== END ==
LOC: M LAB 10:09
PROVIDERS: ATTEND Physician Assistant
DX: R00.2 Palpitations (principal)

== ENCOUNTER 2024-07-10 09:21 | Day surgery (SDC) | payer OTHER ==
[~2024-07-10] VITALS: Ht 165.1 cm; Wt 76.2 kg
[~2024-07-10 09:21] MED LIST changes: +ACETAMINOPHEN 1000MG/100ML IV BAG As Ordered ONE; +LIDOCAINE 2% 100MG/5ML SDV (FOR ANES.) As Ordered ONE; +MIDAZOLAM INJ 2MG/2ML VIAL As Ordered ONE; +MIRA3350 PO; +ONDANSETRON 4MG 2ML VIAL As Ordered ONE; +ROCURONIUM BROMIDE 50MG/5ML VIAL As Ordered ONE; +dexmedeTOMIDine (4MCG/ML)200MCG/50ML BTL (PRECEDEX) As Ordered ONE; +fentaNYL 100 MCG/2 ML INJECTION As Ordered ONE; +propofoL 200 MG/20 ML VIAL As Ordered ONE
[2024-07-10 10:04] LABS: HEMATOCRIT 39.4 % (36.0-47.0); HEMOGLOBIN 12.9 g/dl (12.0-15.5); MEAN CORPUSCULAR HEMOGLOBIN 29.9 pg (27.0-33.0); MEAN CORPUSCULAR HGB CONC 32.7 g/dl (32.0-36.5); MEAN CORPUSCULAR VOLUME 91.2 fl (80.0-96.0); PLATELET COUNT, AUTOMATED 176 10^3/uL (150-450); RED BLOOD COUNT 4.32 10^6/uL (4.00-5.40); WHITE BLOOD COUNT 4.6 10^3/uL (4.0-10.0)
[2024-07-10] MEDS ORDERED: LR 1,000 ML IV SCH (11:05)
[2024-07-10] MEDS ORDERED: HYDROmorphone HCL 2MG/ML 1ML VIAL As Ordered ONE (11:14)
[2024-07-10] MEDS ORDERED: KETOROLAC 30 MG/ML 1ML VIAL As Ordered ONE (11:14)
[2024-07-10] MEDS ORDERED: SUGAMMADEX SODIUM 500 MG/5 ML VIAL As Ordered ONE (13:18)
[2024-07-10] MEDS ORDERED: GLYCOPYRROLATE INJ 0.2 MG/ML 2 ML VIAL As Ordered ONE (13:23)
[2024-07-10] MEDS ORDERED: fentaNYL 100 MCG/2 ML INJECTION IV PRN (13:25)
[2024-07-10] MEDS ORDERED: oxyCODONE 5MG TAB PO PRN (13:25)
[2024-07-10] MEDS ORDERED: MORPHINE 2 MG/ML 1ML VIAL IV PRN (13:25)
[2024-07-10] MEDS ORDERED: ONDANSETRON 4MG 2ML VIAL IV PRN (13:25)
[2024-07-10] MEDS ORDERED: OXYC1TAB23 PO (13:46)
[2024-07-10 15:35] VITALS: BP 117/75; TEMP 97.3; O2SAT 98
== END 2024-07-10 16:07 | disposition home or self-care (01) ==
LOC: M SDC 09:21
PROVIDERS: ATTEND Specialist
DX: Z30.2 Encounter for sterilization (principal); Z88.8 Allergy status to other drugs, medicaments and biological substances; Z91.048 Other nonmedicinal substance allergy status; Z88.1 Allergy status to other antibiotic agents
CPT/HCPCS: 36415; 58661; 81025; 85027; 88302; J0665; J1100; J1171; J1596; J1885; J2250; J2405; J3010

== ENCOUNTER → 2024-08-30 | Outpatient (REF) | payer OTHER ==
[~2024-08-30] MED LIST changes: -ACETAMINOPHEN 1000MG/100ML IV BAG As Ordered ONE; -LIDOCAINE 2% 100MG/5ML SDV (FOR ANES.) As Ordered ONE; -MIDAZOLAM INJ 2MG/2ML VIAL As Ordered ONE; -ONDANSETRON 4MG 2ML VIAL As Ordered ONE; +OXYC1TAB23 PO; -ROCURONIUM BROMIDE 50MG/5ML VIAL As Ordered ONE; -dexmedeTOMIDine (4MCG/ML)200MCG/50ML BTL (PRECEDEX) As Ordered ONE; -fentaNYL 100 MCG/2 ML INJECTION As Ordered ONE; -propofoL 200 MG/20 ML VIAL As Ordered ONE
== END ==
LOC: M LAB REF 09:08
PROVIDERS: ATTEND Internal Medicine Gastroenterology
DX: K50.00 Crohn's disease of small intestine without complications (principal)

== ENCOUNTER → 2024-11-20 | Outpatient (REF) | payer OTHER | LOC: M SFHCPLAZ 12:56 | PROVIDERS: ATTEND Nurse Practitioner Adult Health | DX: R09.89 Other specified symptoms and signs involving the circulatory and respiratory systems (principal) ==